=== PATIENT | male | born 1940 | race Caucasian/White ===

== ENCOUNTER → 2018-01-19 13:45 | Outpatient (CLI) | payer MEDICARE, SELFPAY ==
[2018-01-19 16:37] LABS: BUN Creatinine Ratio 21.1 (6-22); Blood Urea Nitrogen 19 mg/dL (9-20); Calcium 9.3 mg/dL (8.4-10.2); Carbon Dioxide 32 mmol/L (22-32); Chloride 96 mmol/L (98-107); Estimated Glomerular Filt Rate > 60.0 mL/min (>60); Glucose 95 mg/dL (80-110); HEMOLYSIS < 15 (0-50); Potassium 3.3 mmol/L (3.4-5.1); Sodium 138 mmol/L (137-145)
[2018-01-19 17:04] LABS: Prostate Specific Antigen Scrn 1.72 ng/mL (0.1-4.0)
== END ==
PROVIDERS: PCP Internal Medicine; Visit Provider Internal Medicine
DX: N18.9 Chronic kidney disease, unspecified (principal); N40.1 Benign prostatic hyperplasia with lower urinary tract symptoms
CPT/HCPCS: 36415; 80048; G0103

== ENCOUNTER → 2018-01-28 08:30 | Outpatient (CLI) | payer MEDICARE, SELFPAY ==
--- NOTE | 2018-01-28 | DI.US.S_ITS ---
PROCEDURE: US RENAL COMPLETE INDICATIONS: CHRONIC KIDNEY DISEASE TECHNIQUE: Real-time scanning was performed of the kidneys and bladder, with image documentation. COMPARISON: None. FINDINGS: Kidneys: Kidneys are normal in size. Right kidney measures 11.7 cm long; left kidney measures 11.7 cm long. Right renal cortical thickness is 1.5 cm; left renal cortical thickness is 1.8 cm. Renal cortical echotexture is normal. No hydronephrosis or nephrolithiasis. No suspicious solid mass lesions. Bladder: Pre-void bladder volume is 498 mL. Post-void residual is seen 387 mL. Pre-void images demonstrate no intraluminal masses or stones. On pre-void images, both ureteral jets are noted with color Doppler interrogation. (Of note, ureteral jets may not be detectable in up to 25% of cases due to insufficient differences in specific gravity between ureteral and bladder urine). Miscellaneous: No free pelvic fluid. IMPRESSION: 1. Mild renal cortical thinning, otherwise normal ultrasound appearance of kidneys. No hydronephrosis. 2. 387 mL post void residual in the urinary bladder. Dictated by: Ivone George M.D. on 01/28/2018 at 16:43 Approved by: Ivone George M.D. on 01/28/2018 at 16:45
[2018-01-28 09:14] LABS: BUN Creatinine Ratio 14.3 (6-22); Blood Urea Nitrogen 20 mg/dL (9-20); Calcium 9.1 mg/dL (8.4-10.2); Carbon Dioxide 25 mmol/L (22-32); Chloride 101 mmol/L (98-107); Estimated Glomerular Filt Rate 49.4 mL/min (>60); Glucose 107 mg/dL (80-110); HEMOLYSIS < 15 (0-50); Potassium 4.5 mmol/L (3.4-5.1); Sodium 138 mmol/L (137-145)
== END ==
PROVIDERS: PCP Internal Medicine; Visit Provider Internal Medicine
DX: N18.9 Chronic kidney disease, unspecified (principal); I48.91 Unspecified atrial fibrillation
CPT/HCPCS: 36415; 76770; 80048

== ENCOUNTER → 2018-03-24 09:33 | Outpatient (CLI) | payer MEDICARE, SELFPAY ==
--- NOTE | 2018-03-24 | DI.US.S_ITS ---
PROCEDURE: US ABD AORTA ANEURYSM SCREEN INDICATIONS: SCREENING TECHNIQUE: Real time scanning was performed of the aorta and iliac arteries, with image documentation. COMPARISON: None. FINDINGS: Aorta: Proximal aortic diameter measures 2.0 cm. Mid-aorta measures 1.6 cm. Distal aortic diameter is 1.4 cm. Iliac arteries: Right common iliac artery measures 1.1 cm. Left common iliac artery measures 1.0 cm. IMPRESSION: No evidence of abdominal aortic aneurysm. Dictated by: Uri Matute M.D. on 03/24/2018 at 10:00 Approved by: Uri Matute M.D. on 03/24/2018 at 10:02
== END ==
PROVIDERS: PCP Internal Medicine; Visit Provider Internal Medicine
DX: Z13.6 Encounter for screening for cardiovascular disorders (principal)
CPT/HCPCS: 76706

== ENCOUNTER → 2018-10-07 09:02 | Outpatient (CLI) | payer MEDICARE, SELFPAY ==
[2018-10-07 09:35] LABS: Add Manual Diff / Slide Review NO; Basophils Absolute Auto 100 /uL (0-100); Basophils Percent Auto 0.8 % (0-2); Eosinophils Absolute Auto 100 /uL (0-450); Eosinophils Percent Auto 1.7 % (2-4); Hematocrit 45.8 % (41-53); Hemoglobin 15.6 g/dL (13.5-17.5); Lymphocytes Absolute Auto 2300 /uL (1100-4500); Lymphocytes Percent Auto 30.4 % (25-40); Mean Corpuscular HGB Conc 34.1 % (30-36); Mean Corpuscular Hemoglobin 31.8 PG (26-34); Mean Corpuscular Volume 93.4 fL (80-100); Monocytes Absolute Auto 700 /uL (0-900); Monocytes Percent Auto 9.3 % (3-14); Neutrophils Absolute Auto 4400 /uL (1500-7000); Neutrophils Percent Auto 57.8 % (50-75); Platelet Count 227 X10^3/uL (150-400); Red Blood Cell Count 4.91 X10^6/uL (4.5-5.9); Red Cell Distribution Width 15.2 % (11.6-14.8); White Blood Cell Count 7.5 X10^3/uL (4.5-11.0)
[2018-10-07 09:45] LABS: Alanine Aminotransferase 52 IU/L (21-72); Albumin 4.5 g/dL (3.5-5.0); Albumin Globulin Ratio 1.3 (1.0-2.8); Alkaline Phosphatase 103 U/L (38-126); Aspartate Aminotransferase 58 IU/L (17-59); Bilirubin Total 0.9 mg/dL (0.2-1.3); Blood Urea Nitrogen 18 mg/dL (9-20); Calcium 9.4 mg/dL (8.4-10.2); Carbon Dioxide 29 mmol/L (22-32); Chloride 92 mmol/L (98-107); Cholesterol 161 mg/dL (140-199); Estimated Glomerular Filt Rate > 60.0 mL/min (>60); Globulin 3.5 g/dL (1.7-4.1); Glucose 148 mg/dL (80-110); HDL Cholesterol 62 mg/dL (40-60); HEMOLYSIS < 15 (0-50); LDL Cholesterol Calculated 64 mg/dL (<100); Potassium 3.6 mmol/L (3.4-5.1); Sodium 135 mmol/L (137-145); Triglycerides 174 mg/dL (35-150)
== END ==
PROVIDERS: PCP Internal Medicine; Visit Provider Internal Medicine
DX: G47.33 Obstructive sleep apnea (adult) (pediatric) (principal); E66.9 Obesity, unspecified; N18.9 Chronic kidney disease, unspecified; E78.00 Pure hypercholesterolemia, unspecified
CPT/HCPCS: 36415; 80053; 80061; 85025

== ENCOUNTER 2019-07-20 08:01 | Day surgery (SDC) | payer MEDICARE, SELFPAY ==
--- NOTE | 2019-07-19 08:26 | PM.PREOP ---
Pre-operative Note Interval Note History & Physical reviewed/Exam performed by Physician: Yes Changes to H&P: No
--- NOTE | 2019-07-20 07:21 | PM.PREOP ---
Pre-operative Note Interval Note History & Physical reviewed/Exam performed by Physician: Yes Changes to H&P: No H&P completed within 30 days and has changed as indicated here:: Patient on tamsulosin, held this morning only. Will prepare for floppy iris syndrome.
--- NOTE | 2019-07-20 07:22 | P.OP_ITS ---
Operative Date/Time/Diagnoses Date of procedure: 07/20/19 Time of procedure: 09:45 Procedure & Clinicians Procedure: Preoperative diagnoses: 1. 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 3. Status post radial keratotomy LASIK an astigmatic refractive surgery all increasing surgical risk. 4. Morbid obesity. 5. Hypertension. Postoperative diagnoses: 1. Complex cataract removed by phacoemulsification with placement of posterior chamber intraocular lens. 2. Use of Malyugin ring and capsular dye due to advanced cataract. Procedure: Phacoemulsification with posterior chamber intraocular lens implant and use of Malyguin ring. Surgeon: Bharti Ivy MD Complications: None Specimen: None Implant: [id number]+17.5 Blood loss: None Anesthesia: Retrobulbar with monitored standby Description of procedure: Patient presents with a complaint of decreased vision due to cataract which is affecting activities of daily living. He is higher risk due to the previous refractive surgeries of radial keratotomy LASIK and possible astigmatic keratotomy as well as advanced cataract. Also he is is on active tamsulosin which makes it likely for floppy iris The patient wants surgery to improve vision. The iris is floppy due to use of prostate like medication or unknown reason. To improve surgical safety a Malyugin ring iris pupillary device is needed. The patient was taken to the operating room and given IV sedation. A retrobulbar block insert consisting of 6 cc of 2% xylocaine without epinephrine mixed half and half with 0.5% Marcaine with 1 cc of hyaluronidase added is placed between the medial and lateral 1/3 of the inferior orbital rim. Lid akinesia is obtain with 1% xylocaine with epinephrine infiltrated along the lid margin. The eye is manually massaged for 30 sec, prepped using Betadine solution, and draped in the usual sterile fashion. Temporal approach was made, a 1 mm side-port incision was made 90? from the proposed clear corneal incision position. Phenylephrine 1.5% mixed with 1% xylocaine 0.2 cc was placed into the anterior chamber. An air bubble was placed and Visudyne dye was placed into the anterior chamber on the anterior capsule. Viscoat followed by Healon was then placed. A 2.6 mm clear incision with a 2.6 mm blade was placed. A 7.0 mm Malyugin ring was inspected, placed into the food service supervisor and opened in the anterior chamber. The iris was sequentially hooked in all 4 quadrants. It was then centered to improve iris size and visibility.] A 360 degree capsulorrhexis style capsulotomy was then performed with a cystitome needle on a Healon aided by the enlarged pupil. Hydrodelineation and hydrodissection were performed. The phacoemulsification unit is introduced, and sculpting used to groove the central lens. It is then removed in chopping mode. Epi nucleus is removed with epinuclear mode and irrigation aspiration was used to remove the peripheral cortex. The posterior capsule is polished. The intraocular lens is selected, inspected, power confirmed, and placed in the posterior chamber. Viscoelastic was placed into the anterior chamber and the Malyugin ring disinserted from each quadrant of the iris. It was then placed back into its food service supervisor and removed in total from the eye. The wound was stromally hydrated and tested for leaks, there was none and it was left sutureless. The cornea in all its previous incisions was also tested for leak and none were present. It was left sutureless as well. Moxifloxacin 0.1 cc was placed into the anterior chamber. Kenalog 0.2 cc was placed in the superior subconjunctival space. A drop of antibiotic and was placed and the eye was patched and shielded. The patient was stable and returned to the recovery room in excellent condition. Dictated by: hBarti Ivy MD Copy to: [facility] Same procedure as scheduled: Yes
[2019-07-20] MEDS: PROPARACAINE 0.5% OPHTH SOL 2 DROPS EYE-OP (08:53)
[2019-07-20] MEDS: CATARACT EYE COMPOUND (10 DROPS/SYRINGE) 3 DROPS EYE-OP (08:53)
[2019-07-20 08:59] VITALS: BP 152/61; PULSE 46; RESP 15; TEMP 36.8; O2SAT 96; BMI 39.6
[2019-07-20] MEDS: TRIAMCINOLONE 50 MG/5 ML VIAL INJ (10:23)
[2019-07-20] MEDS: MOXIFLOXACIN INJ 5 MG/ML VIAL EYE-OP (10:24)
[2019-07-20] MEDS: PHENYLEPHRINE/LIDOCAINE VIAL (OR) 0.2 ML EYE-OP (10:25)
[2019-07-20] MEDS: LIDOCAINE 2% 4 ML, BUPIVACAINE 0.5% (PF) 4 ML, HYALURONIDASE 150 UNIT INJ (10:26)
[2019-07-20] MEDS: TRYPAN BLUE 0.5 ML SYRINGE INJ (10:26)
[2019-07-20] MEDS: BALANCED SALT IRRIG SOLN NO.2 500 ML, EPINEPHrine 1 MG IRR (10:27)
[2019-07-20] MEDS: HYALURONATE SODIUM 10 MG/ML SYRINGE INJ (10:27)
[2019-07-20] MEDS: ERYTHROMYCIN OPHTH 1 GM OINT 1 APPLIC EYE-RIGHT (10:28)
[2019-07-20] MEDS: CHONDROIDTIN/SOD HYALURONATE 1.05 ML SYRINGE INTRAOCULA (10:28)
[2019-07-20 10:48] VITALS: BP 170/82; PULSE 45; RESP 16; TEMP 36.2; O2SAT 97
== END 2019-07-20 11:04 | disposition home or self-care (01) ==
LOC: OR 08:03
PROVIDERS: PCP Internal Medicine; Referring Provider Ophthalmology; Visit Provider Ophthalmology
PROC: (CPT 66982; principal; 2019-07-20 09:45)
DX: H25.811 Combined forms of age-related cataract, right eye (principal); H21.81 Floppy iris syndrome
CPT/HCPCS: 66982; J0171; J2704; J3301; J3470

== ENCOUNTER → 2020-04-09 08:48 | Outpatient (CLI) | payer MEDICARE, SELFPAY ==
[2020-04-09 09:50] LABS: Add Manual Diff / Slide Review NO; Basophils Absolute Auto 0 /uL (0-100); Basophils Percent Auto 0.7 % (0-2); Eosinophils Absolute Auto 200 /uL (0-450); Eosinophils Percent Auto 3.4 % (2-4); Hematocrit 43.5 % (41-53); Hemoglobin 14.8 g/dL (13.5-17.5); Lymphocytes Absolute Auto 1800 /uL (1100-4500); Lymphocytes Percent Auto 26.6 % (25-40); Mean Corpuscular Hemoglobin 31.7 PG (26-34); Mean Corpuscular Volume 93.4 fL (80-100); Monocytes Absolute Auto 600 /uL (0-900); Monocytes Percent Auto 8.6 % (3-14); Neutrophils Absolute Auto 4100 /uL (1500-7000); Neutrophils Percent Auto 60.7 % (50-75); Platelet Count 137 X10^3/uL (150-400); Red Blood Cell Count 4.66 X10^6/uL (4.5-5.9); Red Cell Distribution Width 13.9 % (11.6-14.8); White Blood Cell Count 6.8 X10^3/uL (4.5-11.0)
[2020-04-09 10:31] LABS: Alanine Aminotransferase 39 IU/L (<50); Albumin 3.8 g/dL (3.5-5.0); Albumin Globulin Ratio 1.5 (1.0-2.8); Alkaline Phosphatase 93 U/L (38-126); Aspartate Aminotransferase 39 IU/L (17-59); BUN Creatinine Ratio 20.2 (6-22); Bilirubin Total 0.8 mg/dL (0.2-1.3); Blood Urea Nitrogen 21 mg/dL (9-20); Calcium 8.9 mg/dL (8.4-10.2); Carbon Dioxide 32 mmol/L (22-32); Chloride 102 mmol/L (98-107); Cholesterol 168 mg/dL (140-199); Estimated Glomerular Filt Rate > 60.0 mL/min (>60); Globulin 2.6 g/dL (1.7-4.1); Glucose 117 mg/dL (80-110); HDL Cholesterol 63 mg/dL (40-60); HEMOLYSIS < 15 (0-50); LDL Cholesterol Calculated 68 mg/dL (<100); Potassium 4.2 mmol/L (3.4-5.1); Sodium 137 mmol/L (137-145); Total Protein 6.4 g/dL (6.3-8.2); Triglycerides 185 mg/dL (35-150); Uric Acid 8.6 mg/dL (3.5-8.5)
== END ==
PROVIDERS: PCP Internal Medicine; Referring Provider Internal Medicine; Visit Provider Internal Medicine
DX: I10 Essential (primary) hypertension (principal); E66.9 Obesity, unspecified; M10.00 Idiopathic gout, unspecified site; E78.00 Pure hypercholesterolemia, unspecified
CPT/HCPCS: 36415; 80053; 80061; 84550; 85025

== ENCOUNTER → 2020-08-15 15:42 | Outpatient (CLI) | payer MEDICARE, SELFPAY ==
[2020-08-15] MEDS: COVID-19 VACC, Ad26(JANSSEN)/PF 0.5 ML IM (15:50)
== END ==
PROVIDERS: PCP Internal Medicine; Visit Provider Internal Medicine
DX: Z23 Encounter for immunization (principal)
CPT/HCPCS: 0031A; 91303

== ENCOUNTER → 2020-09-04 11:21 | Outpatient (CLI) | payer MEDICARE, SELFPAY ==
[2020-09-04 12:40] LABS: Add Manual Diff / Slide Review NO; Basophils Absolute Auto 0 /uL (0-100); Basophils Percent Auto 0.5 % (0-2); Eosinophils Absolute Auto 100 /uL (0-450); Eosinophils Percent Auto 1.9 % (2-4); Hematocrit 43.9 % (41-53); Hemoglobin 14.5 g/dL (13.5-17.5); Lymphocytes Absolute Auto 2100 /uL (1100-4500); Lymphocytes Percent Auto 27.7 % (25-40); Mean Corpuscular HGB Conc 33.1 % (30-36); Mean Corpuscular Hemoglobin 30.4 PG (26-34); Mean Corpuscular Volume 91.9 fL (80-100); Monocytes Absolute Auto 700 /uL (0-900); Monocytes Percent Auto 9.1 % (3-14); Neutrophils Absolute Auto 4600 /uL (1500-7000); Neutrophils Percent Auto 60.8 % (50-75); Platelet Count 155 X10^3/uL (150-400); Red Blood Cell Count 4.78 X10^6/uL (4.5-5.9); Red Cell Distribution Width 14.1 % (11.6-14.8); White Blood Cell Count 7.6 X10^3/uL (4.5-11.0)
[2020-09-04 13:03] LABS: BUN Creatinine Ratio 19.8 (6-22); Blood Urea Nitrogen 20 mg/dL (9-20); Calcium 9.5 mg/dL (8.4-10.2); Carbon Dioxide 26 mmol/L (22-32); Chloride 105 mmol/L (98-107); Estimated Glomerular Filt Rate > 60.0 mL/min (>60); Glucose 96 mg/dL (80-110); HEMOLYSIS < 15 (0-50); Potassium 4.5 mmol/L (3.4-5.1); Sodium 138 mmol/L (137-145)
== END ==
PROVIDERS: PCP Internal Medicine; Referring Provider Internal Medicine; Visit Provider Internal Medicine
DX: I10 Essential (primary) hypertension (principal); G47.33 Obstructive sleep apnea (adult) (pediatric); N18.9 Chronic kidney disease, unspecified; M10.00 Idiopathic gout, unspecified site
CPT/HCPCS: 36415; 80048; 84550; 85025

== ENCOUNTER → 2020-10-09 10:19 | Outpatient (CLI) | payer MEDICARE, SELFPAY ==
[2020-10-09 11:24] LABS: Hemoglobin A1C% w Est Avg Glu 5.6 % (4.0-6.0)
[2020-10-09 12:50] LABS: Folate > 20.0 ng/mL (2.76-20.0); Vitamin B12 Reflex MMA if <400 926 pg/mL (239-931)
== END ==
PROVIDERS: PCP Internal Medicine; Referring Provider Internal Medicine; Visit Provider Internal Medicine
DX: I10 Essential (primary) hypertension (principal); G62.9 Polyneuropathy, unspecified; R73.01 Impaired fasting glucose
CPT/HCPCS: 36415; 82607; 82746; 83036

== ENCOUNTER → 2021-05-09 15:01 | Outpatient (CLI) | payer MEDICARE, SELFPAY ==
--- NOTE | 2021-05-24 08:46 | PM.CARDMON.1 ---
[facility] Report Referral & Results Date Patient Seen: 05/09/21 Requesting provider: Conrado Leal Indication: Palpitations Duration of monitoring (days): 6 Diary information: There were no patient events to review Data: Minimum heart rate identified was 37 beats per minute at 06:12 on 05/11/2021 Maximum sinus heart rate was 99 beats per minute at 09:51 on 05/15/2021 Maximum overall heart rate was 144 beats per minute at 11:36 on 05/09/2021 during a 4 beat run of SVT Approximately 1.1% of identified beats were supraventricular ectopic in origin which would classify them as occasional Approximately 6.4% of identified beats were ventricular ectopic in origin which would classify them as frequent. This included 3 minute 2nd run of ventricular trigeminy There were 18 runs of SVT the fastest being the 4 beat run noted above and the longest lasting 14 beats at a rate of 120 beats per minute which would suggest possible atrial tachycardia rather than true SVT Impression: 6 day secured entrance monitor demonstrating frequent PVCs and occasional PACs as a possible source of sense of palpitations Very rare very brief runs of SVT also identified Patient also somewhat bradycardic overall with maximum sinus heart rate being only 99 beats per minute and minimum heart rate being 37 as above Clinical correlation suggested
== END ==
PROVIDERS: PCP Internal Medicine; Referring Provider Internal Medicine; Visit Provider Internal Medicine
DX: R00.2 Palpitations (principal)
CPT/HCPCS: 93242; 93244

== ENCOUNTER 2021-09-27 18:07 | Emergency (ER) | payer MEDICARE, SELFPAY ==
[2021-09-27] VITALS (20 sets, daily range): BP systolic 155–220; BP diastolic 74–91; PULSE 56–70; RESP 10–28; TEMP 36.7; O2SAT 91–98; BMI 44.6
--- NOTE | 2021-09-27 18:56 | DI.RAD.S_ITS ---
PROCEDURE: XR CHEST 2V INDICATIONS: abdominal/ chest pain TECHNIQUE: 2 views of the chest were acquired. COMPARISON: [facility], , CHEST 2 VIEW, 01/16/2017, 9:47. FINDINGS: Surgical changes and devices: None. Lungs and pleura: Lungs are clear. No pleural effusions or pneumothorax. Mediastinum: Mediastinal contours are normal. Heart size is normal. Bones and chest wall: No suspicious bony abnormalities. Soft tissues appear unremarkable. IMPRESSION: No acute cardiopulmonary abnormality. Dictated by: Deny Adams M.D. on 09/27/2021 at 20:17 Approved by: Deny Adams M.D. on 09/27/2021 at 20:17
--- NOTE | 2021-09-27 19:05 | DI.CT.S_ITS ---
PROCEDURE: CT ANGIO CHEST ABDOMEN PELVIS INDICATIONS: upper ab pain, no bm/no flatus, no vomiting, [place] TECHNIQUE: Precontrast 5 mm thick sections acquired from the lung apices to the iliac crests. After the administration of intravenous contrast, 2.5 mm thick sections again acquired from the lung apices to the iliac crests. Maximum intensity projection (MIP) oblique sagittal and coronal reformats were then acquired. For radiation dose reduction, the following was used: automated exposure control. COMPARISON: None. FINDINGS: Image quality: Excellent. AORTA: The thoracic and abdominal aorta have a normal caliber with no dissection or aneurysm. There are diffuse atherosclerotic calcifications. CHEST: Lungs and pleura: No acute air space opacities. No pleural effusions or pneumothorax. Central and peripheral airways are patent and normal in caliber. Nodules in the right upper lobe measuring 3-5 mm series 6, image 67, 81, and 86 are seen. No other pulmonary nodules or masses. Mediastinum: Heart size is normal. No pericardial effusion. The coronary arteries have atherosclerotic calcifications. No mediastinal adenopathy by size criteria. The aorta has atherosclerosis with no aneurysmal dilatation. Esophagus is normal in caliber. No hiatal hernia. Chest wall: No axillary or supraclavicular adenopathy by size criteria. Thyroid gland is normal . ABDOMEN: Solid organs: Liver: The liver has no mass or intrahepatic biliary ductal dilatation. Biliary: The gallbladder has no gallstones, pericholecystic fluid, gallbladder wall thickening, or surrounding inflammatory change. Pancreas: The pancreas has no mass or ductal dilatation. There is no surrounding inflammation. Spleen: Normal size. There are no masses. Adrenals: No hypertrophy or nodules. Kidneys: No obstructive calculus or hydronephrosis. No solid mass. No cystic mass. Bowel: The distal esophagus and stomach are normal. The small bowel has a normal caliber and appearance. The terminal ileum is normal. The large bowel has a normal caliber and appearance. The appendix is not definitively visualized and therefore acute appendicitis cannot be excluded; however there are no secondary findings to suggest acute appendicitis. No free fluid or air. Nodes and vessels: No retroperitoneal or mesenteric adenopathy by size criteria. Aorta and inferior vena cava are normal in size. Abdominal wall: No abdominal wall mass or hernia. PELVIS: Genitourinary: The bladder has no wall thickening or mass. No bladder calcifications. Abdominal wall: No inguinal hernias or adenopathy. BONES: No suspicious bony lesions. Degenerative changes with no focal abnormality. IMPRESSION: 1. No acute abnormality of the chest, abdomen, or pelvis. 2. No dissection or aneurysm of the thoracic or abdominal aorta. 3. Coronary artery disease. Dictated by: Deny Adams M.D. on 09/27/2021 at 20:54 Approved by: Deny Adams M.D. on 09/27/2021 at 21:02
[2021-09-27 19:11] LABS: COVID19 -Nasal RAPID Negative (Negative)
--- NOTE | 2021-09-27 19:26 | DI.CT.S_ITS ---
PROCEDURE: CT HEAD/BRAIN WO CON INDICATIONS: HTN and headache TECHNIQUE: Noncontrast 4.5 mm thick angled axial sections acquired from the foramen magnum to the vertex, with coronal and sagittal reformats. For radiation dose reduction, the following was used: automated exposure control, adjustment of mA and/or kV according to patient size. COMPARISON: None. FINDINGS: Image quality: Excellent. CSF spaces: Basal cisterns are patent. No extra-axial fluid collections. Ventricles are normal in size and shape. Brain: No midline shift. No intracranial masses or hemorrhage. [place]-white matter interface is normal. Subcortical and periventricular white matter hypodensities are consistent with microvascular ischemic disease. Intracranial vasculature has atherosclerotic calcifications. Skull and face: Calvarium and visualized facial bones are intact, without suspicious lesions. Sinuses: Visualized sinuses and mastoids are clear. IMPRESSION: 1. No acute intracranial abnormality. 2. Cerebral volume loss and small vessel ischemic changes. Dictated by: Deny Adams M.D. on 09/27/2021 at 20:50 Approved by: Deny Adams M.D. on 09/27/2021 at 20:54
[2021-09-27 19:45] LABS: Add Manual Diff / Slide Review NO; Basophils Absolute Auto 0 /uL (0-100); Basophils Percent Auto 0.3 % (0-2); Eosinophils Absolute Auto 0 /uL (0-450); Eosinophils Percent Auto 0.2 % (2-4); Hematocrit 44.9 % (41-53); Hemoglobin 15.3 g/dL (13.5-17.5); Lymphocytes Absolute Auto 1100 /uL (1100-4500); Mean Corpuscular Hemoglobin 30.8 PG (26-34); Mean Corpuscular Volume 90.7 fL (80-100); Monocytes Absolute Auto 800 /uL (0-900); Neutrophils Absolute Auto 11700 /uL (1500-7000); Neutrophils Percent Auto 85.5 % (50-75); Platelet Count 156 X10^3/uL (150-400); Red Blood Cell Count 4.95 X10^6/uL (4.5-5.9); Red Cell Distribution Width 13.5 % (11.6-14.8); White Blood Cell Count 13.7 X10^3/uL (4.5-11.0)
[2021-09-27 20:14] LABS: Lactate (Lactic Acid) 1.7 mmol/L (0.7-2.1)
[2021-09-27 20:15] LABS: Alanine Aminotransferase 38 IU/L (<50); Albumin 4.2 g/dL (3.5-5.0); Albumin Globulin Ratio 1.4 (1.0-2.8); Alkaline Phosphatase 86 U/L (38-126); Aspartate Aminotransferase 43 IU/L (17-59); BUN Creatinine Ratio 15.6 (6-22); Bilirubin Total 0.9 mg/dL (0.2-1.3); Blood Urea Nitrogen 15 mg/dL (9-20); Calcium 8.9 mg/dL (8.4-10.2); Carbon Dioxide 32 mmol/L (22-32); Chloride 98 mmol/L (98-107); Estimated Glomerular Filt Rate > 60 mL/min (>60); Globulin 3.1 g/dL (1.7-4.1); Glucose 132 mg/dL (80-110); HEMOLYSIS < 15 (0-50); Lipase 308 U/L (23-300); Potassium 3.9 mmol/L (3.4-5.1); Sodium 136 mmol/L (137-145); Total Protein 7.3 g/dL (6.3-8.2)
[2021-09-27 20:27] LABS: NT-proBNP (BNP-Adult 18+) 649 pg/mL (<450); Troponin I 0.028 ng/mL (0.01-0.034)
--- NOTE | 2021-09-27 21:21 | ED_ITS ---
HPI - General Adult General Chief complaint: Abdominal Pain Stated complaint: Feels Like , Abd Pain,High BP,Rt Eye Pain Time Seen by Provider: 09/27/21 18:54 Source: patient and family Mode of arrival: Ambulatory History of Present Illness HPI narrative: Patient is a 81-year-old male. History of high blood pressure. Is on medicatio ns for his blood pressure. States he is taking them as directed. Is here for evaluation of chest pain, abdominal pain, no bowel movement in a couple days, headache specifically pain behind his right eye and high blood pressure. He denies chest pain. No shortness of breath. He does state that his abdomen pain is in his upper abdomen. Somewhat worse with palpation. No vomiting. No urinary symptoms. Skin rash. No lower extremity swelling. No vision changes but he is having some discomfort behind his right eye. He does not take his blood pressure on a regular basis but when he was feeling poorly earlier today his to his blood pressure and the systolic was above 200. Related Data Home Medications Medication Instructions Recorded Confirmed RespirCasks Dreamstation CPAP #1 ea 11/04/18 11/04/18 allopurinol 300 mg tablet 300 mg PO DAILY 11/05/18 07/20/19 doxycycline hyclate 20 mg tablet 20 mg PO DAILY tab 11/05/18 07/20/19 fexofenadine 180 mg tablet 180 mg PO PRN PRN 11/05/18 07/20/19 (Maegan Allergy) hydrochlorothiazide 25 mg tablet 25 mg PO DAILY 11/05/18 07/20/19 lovastatin 20 mg tablet 20 mg PO DAILY 11/05/18 07/20/19 metoprolol succinate 50 mg 50 mg PO DAILY 11/05/18 07/20/19 tablet,extended release 24 hr tamsulosin 0.4 mg capsule 0.4 mg PO DAILY 11/05/18 07/20/19 Allergies Allergy/AdvReac Type Severity Reaction Status Date / Time No Known Drug Allergies Allergy Verified 07/20/19 08:57 Review of Systems Review of Systems ROS Unobtainable: All systems reviewed & are unremarkable except as noted in HPI and below Patient History Medical History Depression with anxiety Hyperlipidemia Hypertension Morbid obesity with BMI of 45.0-49.9, adult Obesity (BMI 30-39.9) Obstructive sleep apnea of adult Primary insomnia Social History marital status: details: in an RN household members: spouse lives independently: Yes caregiver/support person: No occupational status: previously employed Smoking Status: Former smoker alcohol intake: current substance use type: does not use Smoking Status: Former smoker alcohol intake frequency: 0-2 drinks per day Alcohol type: beer, wine and hard liquor Substance Use Type: does not use Exam Initial Vital Signs Initial Vital Signs: Vital Signs Temperature 98.0 F 09/27/21 18:34 Pulse Rate 67 09/27/21 18:34 Respiratory Rate 18 09/27/21 18:34 Blood Pressure 220/83 H 09/27/21 18:34 Pulse Oximetry 96 09/27/21 18:34 Const General: cooperative, comfortable and well developed HENMS Head: normal to inspection and normocephalic Face and sinus: normal facial exam Eyes General: appearance normal, both eyes and all related structures Resp Effort & Inspection: normal respiratory effort Auscultation: clear to auscultation bilaterally Cardio Rate: regular rate Rhythm: regular rhythm GI Inspection: normal to inspection Palpation: soft Skin General: no rashes or lesions noted Neuro General: patient alert, patient awake, patient oriented x3 and moves all e xtremities Extrem General: normal to inspection and capillary refill normal Psych Appearance: grossly normal and well kempt Mental Status: mental status grossly normal Course Orders Ordered: Discontinued Medications Hydralazine HCl (Hydralazine 20 Mg/Ml Vial) 10 mg IV NOW ONE Stop: 09/27/21 21:22 Last Admin: 09/27/21 21:40 Dose: 10 mg Documented by: JO ANN Hydromorphone HCl (Hydromorphone 1 Mg Inj) 1 mg IV NOW ONE Stop: 09/27/21 21:22 Last Admin: 09/27/21 21:36 Dose: 1 mg Documented by: JO ANN Vital Signs Vital signs: Vital Signs - 8 hr 09/27/21 22:30 09/27/21 22:31 09/27/21 22:41 Pulse Rate 58 L 58 L 58 L Respiratory Rate 20 16 17 Blood Pressure 183/77 H 174/77 H Pulse Oximetry 91 93 93 09/27/21 22:51 09/27/21 23:00 09/27/21 23:01 Pulse Rate 60 56 L 59 L Respiratory Rate 24 12 15 Blood Pressure 180/79 H 172/79 H Pulse Oximetry 95 95 93 Medical Decision Making Lab Data Lab results reviewed: Yes I reviewed the patient's lab results. Result diagrams: 09/27/21 19:30 09/27/21 19:30 Labs: Lab Results 09/27/21 09/27/21 09/27/21 Range/Units 18:45 19:30 19:30 WBC 13.7 H (4.5-11.0) X10^3/uL RBC 4.95 (4.5-5.9) X10^6/uL Hgb 15.3 (13.5-17.5) g/dL Hct 44.9 (41-53) % MCV 90.7 (80-100) fL MCH 30.8 (26-34) PG MCHC 34.0 (30-36) % RDW 13.5 (11.6-14.8) % Plt Count 156 (150-400) X10^3/uL Neut % (Auto) 85.5 H (50-75) % Lymph % (Auto) 8.0 L (25-40) % Atkinson % (Auto) 6.0 (3-14) % Eos % (Auto) 0.2 L (2-4) % Baso % (Auto) 0.3 (0-2) % Neut # (Auto) 91117 H (0218-0161) /uL Lymph # (Auto) 1100 (3144-1375) /uL Atkinson # (Auto) 800 (0-900) /uL Eos # (Auto) 0 (0-450) /uL Baso # (Auto) 0 (0-100) /uL Sodium 136 L (137-145) mmol/L Potassium 3.9 (3.4-5.1) mmol/L Chloride 98 (98-107) mmol/L Carbon Dioxide 32 (22-32) mmol/L BUN 15 (9-20) mg/dL Creatinine 0.96 (0.66-1.25) mg/dL Estimated GFR > 60 (>60) mL/min BUN/Creatinine Ratio 15.6 (6-22) Glucose 132 H (80-110) mg/dL Lactate (0.7-2.1) mmol/L Calcium 8.9 (8.4-10.2) mg/dL Total Bilirubin 0.9 (0.2-1.3) mg/dL AST 43 (17-59) IU/L ALT 38 (<50) IU/L Alkaline Phosphatase 86 (38-126) U/L Troponin I (0.01-0.034) ng/mL NT-Pro-B Natriuret Pep (<450) pg/mL Total Protein 7.3 (6.3-8.2) g/dL Albumin 4.2 (3.5-5.0) g/dL Globulin 3.1 (1.7-4.1) g/dL Albumin/Globulin Ratio 1.4 (1.0-2.8) Lipase 308 H (23-300) U/L SARS-CoV-2 (PCR) Negative (Negative) 09/27/21 09/27/21 Range/Units 19:30 19:30 WBC (4.5-11.0) X10^3/uL RBC (4.5-5.9) X10^6/uL Hgb (13.5-17.5) g/dL Hct (41-53) % MCV (80-100) fL MCH (26-34) PG MCHC (30-36) % RDW (11.6-14.8) % Plt Count (150-400) X10^3/uL Neut % (Auto) (50-75) % Lymph % (Auto) (25-40) % Atkinson % (Auto) (3-14) % Eos % (Auto) (2-4) % Baso % (Auto) (0-2) % Neut # (Auto) (1995-9434) /uL Lymph # (Auto) (7028-2628) /uL Atkinson # (Auto) (0-900) /uL Eos # (Auto) (0-450) /uL Baso # (Auto) (0-100) /uL Sodium (137-145) mmol/L Potassium (3.4-5.1) mmol/L Chloride (98-107) mmol/L Carbon Dioxide (22-32) mmol/L BUN (9-20) mg/dL Creatinine (0.66-1.25) mg/dL Estimated GFR (>60) mL/min BUN/Creatinine Ratio (6-22) Glucose (80-110) mg/dL Lactate 1.7 (0.7-2.1) mmol/L Calcium (8.4-10.2) mg/dL Total Bilirubin (0.2-1.3) mg/dL AST (17-59) IU/L ALT (<50) IU/L Alkaline Phosphatase (38-126) U/L Troponin I 0.028 (0.01-0.034) ng/mL NT-Pro-B Natriuret Pep 649 H (<450) pg/mL Total Protein (6.3-8.2) g/dL Albumin (3.5-5.0) g/dL Globulin (1.7-4.1) g/dL Albumin/Globulin Ratio (1.0-2.8) Lipase (23-300) U/L SARS-CoV-2 (PCR) (Negative) Urine Dip Bedside Urine Glucose Negative Bedside Urine Bilirubin - Negative Bedside Urine Ketone - Negative Urine Specific [place] 1.010 Bedside Urine Occult Blood - Negative Bedside Urine pH 6.0 Bedside Urine Protein - Negative Bedside Urine Urobilinogen - Negative Bedside Urine Nitrite - Negative Bedside Urine Leukocytes - Negative Esterase Point of care testing: Urine Dip Bedside Urine Glucose Negative Bedside Urine Bilirubin - Negative Bedside Urine Ketone - Negative Urine Specific [place] 1.010 Bedside Urine Occult Blood - Negative Bedside Urine pH 6.0 Bedside Urine Protein - Negative Bedside Urine Urobilinogen - Negative Bedside Urine Nitrite - Negative Bedside Urine Leukocytes - Negative Esterase Imaging Data Chest x-ray: Radiologist's Impression: [address] [address] XRay Report Signed Patient: Amor Hammer MR#: [id number] : 1940 Acct:[id number] Age/Sex: 81 / M Date of Service: 09/27/21 Loc: ED Accession Number: [id number] ?? Procedure: XR chest 2V Ordering Provider: Barbra Montesinos D.O. PROCEDURE:? XR CHEST 2V ? INDICATIONS:? abdominal/ chest pain ? TECHNIQUE:? 2 views of the chest were acquired.? ? COMPARISON:? [facility], , CHEST 2 VIEW, 01/16/2017, 9:47. ? FINDINGS:? ? Surgical changes and devices:? None.? ? Lungs and pleura:? Lungs are clear.? No pleural effusions or pneumothorax.? ? Mediastinum:? Mediastinal contours are normal.? Heart size is normal.? ? Bones and chest wall:? No suspicious bony abnormalities.? Soft tissues appear unremarkable.? ? IMPRESSION:? No acute cardiopulmonary abnormality. ? ? ? Dictated by: Deny Adams M.D. on 09/27/2021 at 20:17 ? ? Approved by: Deny Adams M.D. on 09/27/2021 at 20:17? CT Chest abd pelvis: Radiologist's Impression: [address] [address] [address] Scan Report Signed Patient: Amor Hammer MR#: [id number] : 1940 Acct:[id number] Age/Sex: 81 / M Date of Service: 09/27/21 Loc: ED Accession Number: [id number] ?? Procedure: CT angio chest abdomen pelvis Ordering Provider: Barbra Montesinos D.O. PROCEDURE:? CT ANGIO CHEST ABDOMEN PELVIS ? INDICATIONS:? upper ab pain, no bm/no flatus, no vomiting, [place] ? TECHNIQUE:? Precontrast 5 mm thick sections acquired from the lung apices to the iliac crests.? After the administration of intravenous contrast, 2.5 mm thick sections again acquired from the lung apices to the iliac crests.? Maximum intensity projection (MIP) oblique sagittal and coronal reformats were then acquired.? For radiation dose reduction, the following was used:? automated exposure control.? ? COMPARISON:? None. ? FINDINGS: ? ? Image quality:? Excellent.? ? AORTA:? The thoracic and abdominal aorta have a normal caliber with no dissection or aneurysm.? There are diffuse atherosclerotic calcifications. ? CHEST: Lungs and pleura:? No acute air space opacities.? No pleural effusions or pneumothorax.? Central and peripheral airways are patent and normal in caliber.? Nodules in the right upper lobe measuring 3-5 mm series 6, image 67, 81, and 86 are seen.? No other pulmonary nodules or masses. ? Mediastinum:? Heart size is normal.? No pericardial effusion.? The coronary arteries have atherosclerotic calcifications.? No mediastinal adenopathy by size criteria.? The aorta has atherosclerosis with no aneurysmal dilatation.? Esophagus is normal in caliber.? No hiatal hernia. ? Chest wall:? No axillary or supraclavicular adenopathy by size criteria.? Thyroid gland is normal .? ? ABDOMEN: Solid organs:? Liver: The liver has no mass or intrahepatic biliary ductal dilatation. Biliary: The gallbladder has no gallstones, pericholecystic fluid, gallbladder wall thickening, or surrounding inflammatory change. Pancreas: The pancreas has no mass or ductal dilatation. There is no surrounding inflammation. Spleen: Normal size. There are no masses. Adrenals: No hypertrophy or nodules. Kidneys: No obstructive calculus or hydronephrosis.? No solid mass. No cystic mass. ? Bowel:? The distal esophagus and stomach are normal.? The small bowel has a normal caliber and appearance. The terminal ileum is normal. The large bowel has a normal caliber and appearance.? The appendix is not definitively visualized and therefore acute appendicitis cannot be excluded; however there are no secondary findings to suggest acute appendicitis.? No free fluid or air.? ? Nodes and vessels:? No retroperitoneal or mesenteric adenopathy by size criteria.? Aorta and inferior vena cava are normal in size.? ? Abdominal wall:? No abdominal wall mass or hernia. ? PELVIS:? Genitourinary:? The bladder has no wall thickening or mass. No bladder calcifications. ? Abdominal wall:? No inguinal hernias or adenopathy.? ? BONES:? No suspicious bony lesions.? Degenerative changes with no focal a bnormality. ? IMPRESSION: 1. No acute abnormality of the chest, abdomen, or pelvis. 2. No dissection or aneurysm of the thoracic or abdominal aorta. 3. Coronary artery disease.? ? ? Dictated by: Deny Adams M.D. on 09/27/2021 at 20:54 ? ? Approved by: Deny Adams M.D. on 09/27/2021 at 21:02? CT scan - head: Radiologist's Impression: [address] [address] [address] Scan Report Signed Patient: Amor Hammer MR#: [id number] : 1940 Acct:[id number] Age/Sex: 81 / M Date of Service: 09/27/21 Loc: ED Accession Number: [id number] ?? Procedure: CT head/brain wo con Ordering Provider: Ron Lira D.O. PROCEDURE:? CT HEAD/BRAIN WO CON ? INDICATIONS:? HTN and headache ? TECHNIQUE:? Noncontrast 4.5 mm thick angled axial sections acquired from the foramen magnum to the vertex, with coronal and sagittal reformats.? For radiation dose reduction, the following was used:? automated exposure control, adjustment of mA and/or kV according to patient size.? ? COMPARISON:? None. ? FINDINGS:? Image quality:? Excellent.? ? CSF spaces:? Basal cisterns are patent.? No extra-axial fluid collections.? V entricles are normal in size and shape.? ? Brain:? No midline shift.? No intracranial masses or hemorrhage.? [place]kee[place]-white matter interface is normal. ? Subcortical and periventricular white matter hypod ensities are consistent with microvascular ischemic disease.? Intracranial vasculature has atherosclerotic calcifications. ? Skull and face:? Calvarium and visualized facial bones are intact, without suspicious lesions.? ? Sinuses:? Visualized sinuses and mastoids are clear.? ? IMPRESSION:? 1. No acute intracranial abnormality. 2. Cerebral volume loss and small vessel ischemic changes.? Dictated by: Deny Adams M.D. on 09/27/2021 at 20:50 ? ? Approved by: Deny Adams M.D. on 09/27/2021 at 20:54? ECG Data Attestation: I personally reviewed and interpreted this ECG as follows: Interpretation: Sinus rhythm Frequent PVCs in a trigeminy pattern Trigger rate is 62 Normal axis Normal QRS Normal QTC No ST T wave changes MDM Narrative Medical decision making narrative: Patient is significantly hypertensive with multiple complaints. Head CT he had CT scans the chest abdomen pelvis showed no acute pathology. Patient does have a leukocytosis however there is no definitive source of any infectious etiology. There is no indication for any antibiotics. His blood pressure improved with a dose of hydralazine. He was also given pain medication and the combination of these 2 treatments improved his symptoms and also his blood pressure. Troponin negative. Patient denies chest pain. EKG shows trigeminy but no other ischemic pathology. We did discuss his blood pressure and how he should be taking his blood pressure at home to see whether not his current regiment is appropriately treating this condition. I have low suspicion for intracranial hemorrhage given his workup here in the ER. Will discharge patient home on his current medication regiment however he was given strict return precautions. Discharge Plan Departure Patient Disposition: Home Clinical Impression: Headache, Abdominal pain, Hypertension Instructions: Acute Abdominal Pain, Essential Hypertension, DI for Headache Activity Restrictions/Additional Instructions: I do recommend that you continue to take all of your medications as directed. Contact your primary provider for a follow-up. Be sure to take your blood pr essure at home like we discussed. Also recommend that you try medicine called famotidine/Pepcid. This may help with your abdominal discomfort. Return to the emergency department for any new or worsening symptoms. Prescriptions: No Action (DME) Respironics Dreamstation CPAP Qty: 1 0RF Dose Instruction: As directed Label Comments: Pressure: 12-18 cmH2O DME: [facility] Rx Instructions: As directed metoprolol succinate 50 mg tablet extended release 24 hr 50 mg PO DAILY 0RF tamsulosin 0.4 mg capsule 0.4 mg PO DAILY 0RF allopurinol 300 mg tablet 300 mg PO DAILY 0RF hydrochlorothiazide 25 mg tablet 25 mg PO DAILY 0RF doxycycline hyclate 20 mg tablet 20 mg PO DAILY 0RF lovastatin 20 mg tablet 20 mg PO DAILY 0RF fexofenadine [Maegan Allergy] 180 mg tablet 180 mg PO PRN PRN (Reason: Allergy Symptoms) 0RF Referrals: Jacky Harrington MD [Primary Care Provider] -
[2021-09-27] MEDS: HYDROMORPHONE 1 MG INJ IV (21:36)
[2021-09-27] MEDS: HYDRALAZINE 20 MG/ML VIAL 10 MG IV (21:40)
== END 2021-09-27 23:25 | disposition home or self-care (01) ==
PROVIDERS: Emergency Medicine; Emergency Provider Emergency Medicine; PCP Internal Medicine
DX: R51.9 Headache, unspecified (principal); R10.10 Upper abdominal pain, unspecified; I10 Essential (primary) hypertension; Z87.891 Personal history of nicotine dependence; Z79.899 Other long term (current) drug therapy; Z20.822 Contact with and (suspected) exposure to COVID-19
CPT/HCPCS: 36415; 70450; 71046; 71275; 74174; 80053; 81003; 83605; 83690; 83880; 84484; 85025; 87635; 93005; 96374; 96375; 99284; C9803; J0360; J1170; Q9967

== ENCOUNTER → 2023-07-09 10:55 | Outpatient (CLI) | payer MEDICARE, SELFPAY ==
--- NOTE | 2023-07-09 10:57 | DI.RAD.S_ITS ---
PROCEDURE: XR CHEST 2V INDICATIONS: Cough TECHNIQUE: 2 views of the chest were acquired. COMPARISON: [facility], CR, XR CHEST 2V, 09/27/2021, 19:30. FINDINGS: Surgical changes and devices: None. Lungs and pleura: Lungs are clear. No pleural effusions or pneumothorax. Mediastinum: Mediastinal contours are normal. Heart size is normal. Bones and chest wall: No suspicious bony abnormalities. Soft tissues appear unremarkable. IMPRESSION: No acute cardiopulmonary abnormality is seen. Dictated by: John Castanon M.D. on 07/09/2023 at 11:43 Approved by: John Castanon M.D. on 07/09/2023 at 11:46
== END ==
LOC: RAD 10:56
PROVIDERS: PCP Internal Medicine; Referring Provider Nurse Practitioner Family; Visit Provider Nurse Practitioner Family
DX: R05.9 Cough, unspecified (principal)
CPT/HCPCS: 71046

== ENCOUNTER → 2024-02-04 11:13 | Outpatient (CLI) | payer MEDICARE, SELFPAY ==
[2024-02-04 12:33] LABS: Alanine Aminotransferase 47 IU/L (<50); Aspartate Aminotransferase 56 IU/L (17-59)
== END ==
PROVIDERS: PCP Family Medicine; Referring Provider Podiatrist Foot & Ankle Surgery; Visit Provider Podiatrist Foot & Ankle Surgery
DX: B35.1 Tinea unguium (principal)
CPT/HCPCS: 36415; 84450; 84460

== ENCOUNTER 2024-12-10 08:18 | Inpatient (IN) | payer MEDICARE, SELFPAY ==
[2024-12-10] VITALS (49 sets, daily range): BP systolic 88–166; BP diastolic 53–87; PULSE 82–124; RESP 7–41; TEMP 36.2–36.6; O2SAT 81–97; BMI 43.0; BMI 43.9
--- NOTE | 2024-12-10 08:27 | EKG_ITS ---
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
--- NOTE | 2024-12-10 08:27 | ED.CHESTPAIN ---
HPI - Chest Pain General Chief Complaint: Chest Pain Stated Complaint: Chest discomfort, SOB; can't laydown. Pulse >100 Time Seen by Provider: 12/10/24 08:26 History of Present Illness HPI narrative: 84-year-old gentleman history of high blood pressure, dyslipidemia, gout, arthritis, obstructive sleep apnea, morbid obesity recently diagnosed with atrial fibrillation started on Eliquis 5 mg b.i.d. and diltiazem SR 120 mg presents with right-sided chest pain started last night along with dyspnea on exertion and hurts to take a deep breath. He rates as 10 at this time and did not take anything different other than his regular medicines including levothyroxine allopurinol chlorthalidone lovastatin tamsulosin Eliquis and levothyroxine valsartan and gabapentin. He denies leg pain, leg swelling, long-distance travel, smoking or cancer history or any history of DVT or PE. Other than what is stated 14 point review of system is negative. Related Data Home Medications ?Medication ?Instructions ?Recorded ?Confirmed hydrochlorothiazide 25 mg tablet 25 mg PO DAILY 11/05/18 12/10/24 lovastatin 20 mg tablet 20 mg PO DAILY 11/05/18 12/10/24 metoprolol succinate 50 mg 50 mg PO DAILY 11/05/18 12/10/24 tablet,extended release 24 hr tamsulosin 0.4 mg capsule 0.4 mg PO DAILY 11/05/18 12/10/24 Respironics Dreamstation 2 CPAP #1 ea 11/28/21 12/10/24 allopurinol 300 mg tablet 300 mg PO DAILY 07/09/23 12/10/24 gabapentin 300 mg capsule 400 mg PO DAILY 07/09/23 12/10/24 apixaban 5 mg tablet (Eliquis) 5 mg PO BID 12/10/24 12/10/24 chlorthalidone 25 mg tablet 25 mg PO DAILY 12/10/24 12/10/24 diltiazem HCl 120 mg 120 mg PO DAILY 12/10/24 12/10/24 capsule,extended release 24 hr levothyroxine 75 mcg tablet 75 mcg PO DAILY 12/10/24 12/10/24 valsartan 160 mg tablet 160 mg PO DAILY 12/10/24 12/10/24 Previous Rx's ?Medication ?Instructions ?Recorded albuterol sulfate 90 mcg/actuation 2 puff inhalation Q6H PRN 07/09/23 aerosol inhaler shortness of breath or wheezing #6.7 grams fluticasone propionate 50 1 spray intranasal Q12H #16 grams 07/09/23 mcg/actuation nasal spray,suspension (Flonase Allergy Relief) inhalational spacing device #1 ea 07/09/23 (Aerochamber MV spacer) Allergies Allergy/AdvReac Type Severity Reaction Status Date / Time No Known Drug Allergies Allergy Verified 07/09/23 10:41 Review of Systems Review of Systems ROS Unobtainable: All systems reviewed & are unremarkable except as noted in HPI and below Patient History Medical History (Updated 12/10/24 @ 15:24 by Amor Rahman DO) Obesity (BMI 30-39.9) Hypertension Hyperlipidemia Primary insomnia Obstructive sleep apnea of adult Morbid obesity with BMI of 45.0-49.9, adult Depression with anxiety Social History marital status: details: in an RN household members: spouse lives independently: Yes caregiver/support person: No occupational status: previously employed alcohol intake: current substance use type: does not use alcohol intake frequency: 0-2 drinks per day Alcohol type: beer, wine and hard liquor Exam Narrative Exam Narrative: GENERAL: [84] year old patient appears stated age. Well-developed patient, in mild distress. HEAD: Atraumatic. Normocephalic. EYES: Pupils equal round and reactive. Extraocular motions intact. No scleral icterus. No injection or drainage. ENT: Nose without bleeding, purulent drainage. Throat without erythema, tonsillar hypertrophy or exudate. Airway patent. NECK: Trachea midline. Non tender CARDIOVASCULAR: Tachycardic irregularly irregular without murmurs, gallops, or rubs. RESPIRATORY: Clear to auscultation. Breath sounds equal bilaterally. No wheezes, rales, or rhonchi. GASTROINTESTINAL: Abdomen soft, non-tender, nondistended. EXTREMITIES: No edema or joint tenderness. BACK: Nontender without deformity or crepitance. No flank tenderness. NEURO: AOx3. SKIN: No rash or erythema of visible areas Initial Vital Signs Initial Vital Signs: Vital Signs Pulse Oximetry 81 L 12/10/24 08:23 Scores HEART Score Heart Score history: Moderately Suspicious Heart Score EKG: Non-Specific repolarization disturbance Heart Score Age: > or = 65 years old Heart Score risk factors: > 3 risk factors or hx of atherosclerotic disease Heart Score troponin: < or = to normal limit Heart Score Total: 6 Course Orders Ordered: ED Orders 12/10/24 08:31 XR chest 1V Stat EKG-12 Lead Stat RT Consult Eval and Treat STAT 12/10/24 08:32 Complete Blood Count AUTO DIFF Stat Comprehensive Metabolic Panel Stat Lactate (Lactic Acid) Stat Lipase Stat NT-proBNP (BNP-Adult 18+) Stat Prothrombin Time INR Stat Troponin & CK Cardiac Panel Stat 12/10/24 08:36 CT angio chest PE protocol Stat 12/10/24 10:36 EKG-12 Lead Stat 12/10/24 10:57 Trop I [Troponin I] Stat 12/10/24 12:07 CT abdomen pelvis wo con Stat 12/10/24 14:08 Troponin I Stat 12/10/24 14:09 EKG-12 Lead Stat Sodium Chloride (Normal Saline 0.9%) 1,000 mls @ 150 mls/hr IV CONT CRISTINA Last Admin: 12/10/24 08:47 Dose: 150 mls/hr Documented By: KAYLA Nitroglycerin (Nitroglycerin 0.4 Mg Sl Tab) 0.4 mg SL [id number] PRN PRN Reason: Chest Pain Last Admin: 12/10/24 10:49 Dose: 0.4 mg Documented By: Admin: 12/10/24 10:17 Dose: 0.4 mg Documented By: KAYLA Discontinued Medications Aspirin (Aspirin 81 Mg Chew Tab) 324 mg PO NOW ONE Stop: 12/10/24 08:36 Last Admin: 12/10/24 08:46 Dose: 324 mg Documented By: KAYLA Aspirin (Aspirin Ec 325 Mg Tablet) 325 mg PO NOW ONE Stop: 12/10/24 08:39 Diltiazem HCl (Diltiazem 25 Mg/5 Ml Sdv) 25 mg IV NOW ONE Stop: 12/10/24 08:49 Last Admin: 12/10/24 09:13 Dose: 10 mg Documented By: KAYLA Hydromorphone HCl (Hydromorphone 1 Mg Inj) 1 mg IV NOW ONE Stop: 12/10/24 12:08 Last Admin: 12/10/24 12:10 Dose: 1 mg Documented By: TREVER Morphine Sulfate (Morphine 4 Mg/Ml Inj) 4 mg IV NOW ONE Stop: 12/10/24 08:39 Last Admin: 12/10/24 08:46 Dose: 4 mg Documented By: LM Vital Signs Vital signs: Vital Signs - 8 hr 12/10/24 08:23 12/10/24 08:25 12/10/24 08:25 Temperature Pulse Rate 97 H Respiratory Rate Blood Pressure 140/71 Pulse Oximetry 81 L 96 Oxygen Delivery Method 12/10/24 08:29 12/10/24 08:30 12/10/24 08:31 Temperature 97.9 F Pulse Rate 99 H 100 H Respiratory Rate 24 21 Blood Pressure 140/71 145/85 H Pulse Oximetry 96 96 Oxygen Delivery Method Room Air 12/10/24 08:31 12/10/24 09:02 12/10/24 09:03 Temperature Pulse Rate 110 H 101 H 99 H Respiratory Rate 25 H 24 7 L Blood Pressure Pulse Oximetry 95 93 94 Oxygen Delivery Method 12/10/24 09:03 12/10/24 09:30 12/10/24 09:31 Temperature Pulse Rate 82 85 Respiratory Rate 20 18 Blood Pressure 166/87 H Pulse Oximetry 92 92 Oxygen Delivery Method 12/10/24 09:31 12/10/24 10:00 12/10/24 10:00 Temperature Pulse Rate 83 Respiratory Rate 20 Blood Pressure 137/82 132/75 Pulse Oximetry 93 Oxygen Delivery Method 12/10/24 10:17 12/10/24 10:30 12/10/24 10:30 Temperature Pulse Rate 88 94 H Respiratory Rate 24 Blood Pressure 132/75 129/60 Pulse Oximetry 90 L Oxygen Delivery Method 12/10/24 10:49 Temperature Pulse Rate 86 Respiratory Rate Blood Pressure 129/60 Pulse Oximetry Oxygen Delivery Method MDM - Chest Pain Lab Data 12/10/24 08:32 12/10/24 08:32 Labs: Lab Results 12/10/24 12/10/24 12/10/24 Range/Units 08:32 08:32 08:32 WBC 12.2 H (4.5-11.0) X10^3/uL RBC 4.48 L (4.5-5.9) X10^6/uL Hgb 14.4 (13.5-17.5) g/dL Hct 42.6 (41-53) % MCV 95.2 (80-100) fL MCH 32.2 (26-34) PG MCHC 33.8 (30-36) % RDW 14.9 H (11.6-14.8) % Plt Count 174 (150-400) X10^3/uL Neut % (Auto) 76.4 H (50-75) % Lymph % (Auto) 14.3 L (25-40) % [place] % (Auto) 8.4 (3-14) % Eos % (Auto) 0.4 L (2-4) % Baso % (Auto) 0.5 (0-2) % Neut # (Auto) 9400 H (9156-7422) /uL Lymph # (Auto) 1800 (5918-6425) /uL [place] # (Auto) 1000 H (0-900) /uL Eos # (Auto) 100 (0-450) /uL Baso # (Auto) 100 (0-100) /uL PT 16.6 H (9.4-12.5) SECONDS INR 1.5 H (0.9-1.3) Sodium Cancelled 138 Potassium Cancelled 4.1 Chloride Cancelled Carbon Dioxide BUN Creatinine Estimated GFR BUN/Creatinine Ratio Glucose Lactate (0.7-2.1) mmol/L Calcium Total Bilirubin AST ALT Alkaline Phosphatase Total Creatine Kinase (55-170) U/L Troponin I NT-Pro-B Natriuret Pep (<450) pg/mL Total Protein Albumin Globulin Albumin/Globulin Ratio Lipase (23-300) U/L 12/10/24 12/10/24 12/10/24 Range/Units 08:32 08:32 08:32 WBC (4.5-11.0) X10^3/uL RBC (4.5-5.9) X10^6/uL Hgb (13.5-17.5) g/dL Hct (41-53) % MCV (80-100) fL MCH (26-34) PG MCHC (30-36) % RDW (11.6-14.8) % Plt Count (150-400) X10^3/uL Neut % (Auto) (50-75) % Lymph % (Auto) (25-40) % [place] % (Auto) (3-14) % Eos % (Auto) (2-4) % Baso % (Auto) (0-2) % Neut # (Auto) (9671-2147) /uL Lymph # (Auto) (7378-5165) /uL [place] # (Auto) (0-900) /uL Eos # (Auto) (0-450) /uL Baso # (Auto) (0-100) /uL PT (9.4-12.5) SECONDS INR (0.9-1.3) Sodium Potassium Chloride 103 Carbon Dioxide Cancelled 25 BUN Cancelled 23 H Creatinine Cancelled Estimated GFR BUN/Creatinine Ratio Glucose Lactate (0.7-2.1) mmol/L Calcium Total Bilirubin AST ALT Alkaline Phosphatase Total Creatine Kinase (55-170) U/L Troponin I NT-Pro-B Natriuret Pep (<450) pg/mL Total Protein Albumin Globulin Albumin/Globulin Ratio Lipase (23-300) U/L 12/10/24 12/10/24 12/10/24 Range/Units 08:32 08:32 08:32 WBC (4.5-11.0) X10^3/uL RBC (4.5-5.9) X10^6/uL Hgb (13.5-17.5) g/dL Hct (41-53) % MCV (80-100) fL MCH (26-34) PG MCHC (30-36) % RDW (11.6-14.8) % Plt Count (150-400) X10^3/uL Neut % (Auto) (50-75) % Lymph % (Auto) (25-40) % [place] % (Auto) (3-14) % Eos % (Auto) (2-4) % Baso % (Auto) (0-2) % Neut # (Auto) (1297-0738) /uL Lymph # (Auto) (0587-5064) /uL [place] # (Auto) (0-900) /uL Eos # (Auto) (0-450) /uL Baso # (Auto) (0-100) /uL PT (9.4-12.5) SECONDS INR (0.9-1.3) Sodium Potassium Chloride Carbon Dioxide BUN Creatinine 1.17 Estimated GFR Cancelled > 60 BUN/Creatinine Ratio Cancelled 19.7 Glucose Cancelled Lactate (0.7-2.1) mmol/L Calcium Total Bilirubin AST ALT Alkaline Phosphatase Total Creatine Kinase (55-170) U/L Troponin I NT-Pro-B Natriuret Pep (<450) pg/mL Total Protein Albumin Globulin Albumin/Globulin Ratio Lipase (23-300) U/L 12/10/24 12/10/24 12/10/24 Range/Units 08:32 08:32 08:32 WBC (4.5-11.0) X10^3/uL RBC (4.5-5.9) X10^6/uL Hgb (13.5-17.5) g/dL Hct (41-53) % MCV (80-100) fL MCH (26-34) PG MCHC (30-36) % RDW (11.6-14.8) % Plt Count (150-400) X10^3/uL Neut % (Auto) (50-75) % Lymph % (Auto) (25-40) % [place] % (Auto) (3-14) % Eos % (Auto) (2-4) % Baso % (Auto) (0-2) % Neut # (Auto) (7366-8173) /uL Lymph # (Auto) (2495-9000) /uL [place] # (Auto) (0-900) /uL Eos # (Auto) (0-450) /uL Baso # (Auto) (0-100) /uL PT (9.4-12.5) SECONDS INR (0.9-1.3) Sodium Potassium Chloride Carbon Dioxide BUN Creatinine Estimated GFR BUN/Creatinine Ratio Glucose 129 H Lactate 1.7 (0.7-2.1) mmol/L Calcium Cancelled 9.4 Total Bilirubin Cancelled 0.9 AST Cancelled ALT Alkaline Phosphatase Total Creatine Kinase (55-170) U/L Troponin I NT-Pro-B Natriuret Pep (<450) pg/mL Total Protein Albumin Globulin Albumin/Globulin Ratio Lipase (23-300) U/L 12/10/24 12/10/24 12/10/24 Range/Units 08:32 08:32 08:32 WBC (4.5-11.0) X10^3/uL RBC (4.5-5.9) X10^6/uL Hgb (13.5-17.5) g/dL Hct (41-53) % MCV (80-100) fL MCH (26-34) PG MCHC (30-36) % RDW (11.6-14.8) % Plt Count (150-400) X10^3/uL Neut % (Auto) (50-75) % Lymph % (Auto) (25-40) % [place] % (Auto) (3-14) % Eos % (Auto) (2-4) % Baso % (Auto) (0-2) % Neut # (Auto) (0668-4826) /uL Lymph # (Auto) (5621-2609) /uL [place] # (Auto) (0-900) /uL Eos # (Auto) (0-450) /uL Baso # (Auto) (0-100) /uL PT (9.4-12.5) SECONDS INR (0.9-1.3) Sodium Potassium Chloride Carbon Dioxide BUN Creatinine Estimated GFR BUN/Creatinine Ratio Glucose Lactate (0.7-2.1) mmol/L Calcium Total Bilirubin AST 65 H ALT Cancelled 64 H Alkaline Phosphatase Cancelled 148 H Total Creatine Kinase 51 L (55-170) U/L Troponin I Cancelled NT-Pro-B Natriuret Pep (<450) pg/mL Total Protein Albumin Globulin Albumin/Globulin Ratio Lipase (23-300) U/L 12/10/24 12/10/24 12/10/24 Range/Units 08:32 08:32 08:32 WBC (4.5-11.0) X10^3/uL RBC (4.5-5.9) X10^6/uL Hgb (13.5-17.5) g/dL Hct (41-53) % MCV (80-100) fL MCH (26-34) PG MCHC (30-36) % RDW (11.6-14.8) % Plt Count (150-400) X10^3/uL Neut % (Auto) (50-75) % Lymph % (Auto) (25-40) % [place] % (Auto) (3-14) % Eos % (Auto) (2-4) % Baso % (Auto) (0-2) % Neut # (Auto) (7173-7657) /uL Lymph # (Auto) (4435-6252) /uL [place] # (Auto) (0-900) /uL Eos # (Auto) (0-450) /uL Baso # (Auto) (0-100) /uL PT (9.4-12.5) SECONDS INR (0.9-1.3) Sodium Potassium Chloride Carbon Dioxide BUN Creatinine Estimated GFR BUN/Creatinine Ratio Glucose Lactate (0.7-2.1) mmol/L Calcium Total Bilirubin AST ALT Alkaline Phosphatase Total Creatine Kinase (55-170) U/L Troponin I < 0.012 NT-Pro-B Natriuret Pep 553 H (<450) pg/mL Total Protein Cancelled 7.7 Albumin Cancelled 4.5 Globulin Cancelled Albumin/Globulin Ratio Lipase (23-300) U/L 12/10/24 12/10/24 12/10/24 Range/Units 08:32 08:32 10:57 WBC (4.5-11.0) X10^3/uL RBC (4.5-5.9) X10^6/uL Hgb (13.5-17.5) g/dL Hct (41-53) % MCV (80-100) fL MCH (26-34) PG MCHC (30-36) % RDW (11.6-14.8) % Plt Count (150-400) X10^3/uL Neut % (Auto) (50-75) % Lymph % (Auto) (25-40) % [place] % (Auto) (3-14) % Eos % (Auto) (2-4) % Baso % (Auto) (0-2) % Neut # (Auto) (7303-8890) /uL Lymph # (Auto) (5269-6989) /uL [place] # (Auto) (0-900) /uL Eos # (Auto) (0-450) /uL Baso # (Auto) (0-100) /uL PT (9.4-12.5) SECONDS INR (0.9-1.3) Sodium Potassium Chloride Carbon Dioxide BUN Creatinine Estimated GFR BUN/Creatinine Ratio Glucose Lactate (0.7-2.1) mmol/L Calcium Total Bilirubin AST ALT Alkaline Phosphatase Total Creatine Kinase (55-170) U/L Troponin I < 0.012 NT-Pro-B Natriuret Pep (<450) pg/mL Total Protein Albumin Globulin 3.2 Albumin/Globulin Ratio Cancelled 1.4 Lipase 492 H (23-300) U/L 12/10/24 Range/Units 14:08 WBC (4.5-11.0) X10^3/uL RBC (4.5-5.9) X10^6/uL Hgb (13.5-17.5) g/dL Hct (41-53) % MCV (80-100) fL MCH (26-34) PG MCHC (30-36) % RDW (11.6-14.8) % Plt Count (150-400) X10^3/uL Neut % (Auto) (50-75) % Lymph % (Auto) (25-40) % [place] % (Auto) (3-14) % Eos % (Auto) (2-4) % Baso % (Auto) (0-2) % Neut # (Auto) (2420-2191) /uL Lymph # (Auto) (9328-1617) /uL [place] # (Auto) (0-900) /uL Eos # (Auto) (0-450) /uL Baso # (Auto) (0-100) /uL PT (9.4-12.5) SECONDS INR (0.9-1.3) Sodium Potassium Chloride Carbon Dioxide BUN Creatinine Estimated GFR BUN/Creatinine Ratio Glucose Lactate (0.7-2.1) mmol/L Calcium Total Bilirubin AST ALT Alkaline Phosphatase Total Creatine Kinase (55-170) U/L Troponin I < 0.012 NT-Pro-B Natriuret Pep (<450) pg/mL Total Protein Albumin Globulin Albumin/Globulin Ratio Lipase (23-300) U/L Imaging Data Chest x-ray: Radiologist's Impression: [address] [address] XRay Report Signed Patient: Amor Hammer MR#: [id number] : 1940 Acct:[id number] Age/Sex: 84 / M Date of Service: 12/10/24 Loc: ED Accession Number: [id number] Procedure: XR chest 1V Ordering Provider: Amor Rahman D.O. PROCEDURE: XR CHEST 1V INDICATIONS: Shortness of breath TECHNIQUE: One view of the chest was acquired. COMPARISON: [facility], CR, XR CHEST 2V, 07/09/2023, 10:56. [facility], CR, XR CHEST 2V, 09/27/2021, 19:30. FINDINGS AND IMPRESSION: Low lung volumes. No dense airspace disease or pleural effusion on this single view study. Cardiomegaly, increased from prior. Degenerative osseous changes. Dictated by: Theron Mehta M.D. on 12/10/2024 at 8:03 Approved by: Theron Mehta M.D. on 12/10/2024 at 8:05 CT scan - chest: Radiologist's Impression: [address] [address] [address] Scan Report Signed Patient: Amor Hammer MR#: [id number] : 1940 Acct:[id number] Age/Sex: 84 / M Date of Service: 12/10/24 Loc: ED Accession Number: [id number] Procedure: CT angio chest PE protocol Ordering Provider: Amor Rahman D.O. PROCEDURE: CT ANGIO CHEST PE PROTOCOL INDICATIONS: chst pain/ sob/dale/morbid obesity/ afib/tachy TECHNIQUE: After the administration of intravenous contrast, 2 mm thick sections acquired from the pulmonary apices to the posterior costophrenic angles. 3-dimensional maximum intensity projection (MIP) coronal and sagittal reformats were then acquired through the thorax. For radiation dose reduction, the following was used: automated exposure control, adjustment of mA and/or kV according to patient size. COMPARISON: Not available FINDINGS: Image quality: Diagnostic Lungs and pleura: No airspace consolidation. Basal atelectasis. No pleural effusions. Few small nodules are present, for example in the right lung subpleural region image 5/181 measuring 4 mm. Mediastinum, heart, and esophagus: No acute pulmonary embolism. Unremarkable esophagus. There are coronary calcifications and cardiomegaly. Mediastinal lipomatosis. No pathologic lymphadenopathy by size criteria Chest wall and thyroid: Unremarkable Upper abdomen: Suspect hepatic steatosis. Bones: There are degenerative osseous changes. No aggressive appearing osseous abnormality. Right anterior rib deformities, probably nonacute IMPRESSION: No acute pulmonary embolism. No dense airspace disease or pleural effusions. Cardiomegaly and coronary calcifications. Small pulmonary nodules under 6 mm, for which follow-up imaging is optional in 1 year for high risk patients. Other findings above. Dictated by: Theron Mehta M.D. on 12/10/2024 at 8:23 Approved by: Theron Mehta M.D. on 12/10/2024 at 8:27 CT scan - abdomen/pelvis: Radiologist's Impression: [address] [address] [address] Scan Report Signed Patient: Amor Hammer MR#: [id number] : 1940 Acct:[id number] Age/Sex: 84 / M Date of Service: 12/10/24 Loc: ED Accession Number: [id number] Procedure: CT abdomen pelvis wo con Ordering Provider: Amor Rahman D.O. PROCEDURE: CT ABDOMEN PELVIS WO CON INDICATIONS: epigastric pain/ elevated lipase TECHNIQUE: CT of the abdomen and pelvis was obtained without intravenous contrast. Coronal and sagittal reformats were performed. For radiation dose reduction, the following was used: automated exposure control, adjustment of mA and/or kV according to patient size. COMPARISON: [facility], CT, CT ANGIO CHEST ABDOMEN PELVIS, 09/27/2021, 19:49. FINDINGS: Image quality: Diagnostic Lower chest: Separately dictated. Liver: At least moderate hepatic steatosis. No contour deforming mass Gallbladder and biliary system: Unremarkable, nondilated Pancreas: Oibm-ga-nmwforcn parenchymal atrophy without ductal dilation. No significant surrounding edema Spleen: Nonenlarged Adrenals: No discrete nodules Kidneys: No contour deforming mass. Contrast excretion is seen from prior CT. Vessels and lymph nodes: No abdominal aortic aneurysm. No enlarged lymph nodes by size criteria. Bowel and peritoneum: No evidence of small bowel obstruction. Colonic diverticulosis. Nondilated appendix No drainable fluid collection or ascites Body wall: Unremarkable Pelvis: Small bladder diverticula. Prostate is unremarkable on limited non-contrast CT. Bones: No aggressive appearing osseous abnormality. Degenerative changes are seen. IMPRESSION: No significant peripancreatic edema on noncontrast CT. No biliary ductal dilation identified. There is qozs-oe-sozwlhvy atrophy of the pancreatic parenchyma. Other findings above. Dictated by: Theron Mehta M.D. on 12/10/2024 at 12:52 Approved by: Theron Mehta M.D. on 12/10/2024 at 12:55 ECG Data Interpretation: AFib RVR HR 104 [place] undetermined QRS [address]-t wave change No previous to compare MDM Narrative Medical decision making narrative: Vital signs, nurse triage note, medication list, previous ER visits, and all imaging studies reviewed. Chest x-ray showed low lung volume no dense airspace disease or pleural effusion. Cardiomegaly. Degenerative osseous changes. CTA showed no acute PE no dense airspace disease or pleural effusion. Cardiomegaly and coronary calcification. Small pulmonary nodule under 6 mm. Patient received aspirin 324 mg, nitro sublingual x3, morphine 4 mg, Dilaudid 1 mg, and diltiazem 25 mg now rate controlled from or AFib RVR. Differential diagnosis STEMI NSTEMI GERD pancreatitis unstable angina PE. Case discussed with Dr. Guo who has graciously accepted the patient for inpatient admission Discharge Plan Departure Patient Disposition: Admitted As Inpatient Clinical Impression: Atrial fibrillation with rapid ventricular response Chest pain Qualifiers: Chest pain type: chest pain on breathing Qualified Code(s): R07.1 - Chest pain on breathing Admit Date/Time: 12/10/24 15:21 Admit Provider: Tl Guo
--- NOTE | 2024-12-10 08:31 | DI.RAD.S_ITS ---
PROCEDURE: XR CHEST 1V INDICATIONS: Shortness of breath TECHNIQUE: One view of the chest was acquired. COMPARISON: [facility], CR, XR CHEST 2V, 07/09/2023, 10:56. [facility], CR, XR CHEST 2V, 09/27/2021, 19:30. FINDINGS AND IMPRESSION: Low lung volumes. No dense airspace disease or pleural effusion on this single view study. Cardiomegaly, increased from prior. Degenerative osseous changes. Dictated by: Theron Mehta M.D. on 12/10/2024 at 8:03 Approved by: Theron Mehta M.D. on 12/10/2024 at 8:05
--- NOTE | 2024-12-10 08:36 | DI.CT.S_ITS ---
PROCEDURE: CT ANGIO CHEST PE PROTOCOL INDICATIONS: chst pain/ sob/dale/morbid obesity/ afib/tachy TECHNIQUE: After the administration of intravenous contrast, 2 mm thick sections acquired from the pulmonary apices to the posterior costophrenic angles. 3-dimensional maximum intensity projection (MIP) coronal and sagittal reformats were then acquired through the thorax. For radiation dose reduction, the following was used: automated exposure control, adjustment of mA and/or kV according to patient size. COMPARISON: Not available FINDINGS: Image quality: Diagnostic Lungs and pleura: No airspace consolidation. Basal atelectasis. No pleural effusions. Few small nodules are present, for example in the right lung subpleural region image 5/181 measuring 4 mm. Mediastinum, heart, and esophagus: No acute pulmonary embolism. Unremarkable esophagus. There are coronary calcifications and cardiomegaly. Mediastinal lipomatosis. No pathologic lymphadenopathy by size criteria Chest wall and thyroid: Unremarkable Upper abdomen: Suspect hepatic steatosis. Bones: There are degenerative osseous changes. No aggressive appearing osseous abnormality. Right anterior rib deformities, probably nonacute IMPRESSION: No acute pulmonary embolism. No dense airspace disease or pleural effusions. Cardiomegaly and coronary calcifications. Small pulmonary nodules under 6 mm, for which follow-up imaging is optional in 1 year for high risk patients. Other findings above. Dictated by: Theron Mehta M.D. on 12/10/2024 at 8:23 Approved by: Theron Mehta M.D. on 12/10/2024 at 8:27
[2024-12-10] MEDS: MORPHINE 4 MG/ML INJ IV (08:46)
[2024-12-10] MEDS: ASPIRIN 81 MG CHEW TAB 324 MG PO (08:46)
[2024-12-10 08:47] LABS: Add Manual Diff / Slide Review NO; Hematocrit 42.6 % (41-53); Hemoglobin 14.4 g/dL (13.5-17.5); Lymphocytes Absolute Auto 1800 /uL (1100-4500); Mean Corpuscular HGB Conc 33.8 % (30-36); Mean Corpuscular Hemoglobin 32.2 PG (26-34); Mean Corpuscular Volume 95.2 fL (80-100); Platelet Count 174 X10^3/uL (150-400)
[2024-12-10] MEDS: SODIUM CHLORIDE 0.9% 1,000 ML 150 ML IV (08:47)
[2024-12-10 08:50] LABS: INR 1.5 (0.9-1.3); Prothrombin Time 16.6 SECONDS (9.4-12.5)
[2024-12-10 09:02] LABS: Lactate (Lactic Acid) 1.7 mmol/L (0.7-2.1)
[2024-12-10 09:03] LABS: Alanine Aminotransferase 64 IU/L (<50); Albumin 4.5 g/dL (3.5-5.0); Albumin Globulin Ratio 1.4 (1.0-2.8); Alkaline Phosphatase 148 U/L (38-126); Blood Urea Nitrogen 23 mg/dL (9-20); Calcium 9.4 mg/dL (8.4-10.2); Carbon Dioxide 25 mmol/L (22-32); Chloride 103 mmol/L (98-107); Creatine Kinase 51 U/L (55-170); Estimated Glomerular Filt Rate > 60 mL/min (>60); Globulin 3.2 g/dL (1.7-4.1); Glucose 129 mg/dL (70-99); HEMOLYSIS < 15 (0-50); Lipase 492 U/L (23-300); Potassium 4.1 mmol/L (3.4-5.1); Sodium 138 mmol/L (137-145); Total Protein 7.7 g/dL (6.3-8.2)
[2024-12-10 09:14] LABS: Troponin I < 0.012 ng/mL (0.01-0.034)
[2024-12-10 09:37] LABS: NT-proBNP (BNP-Adult 18+) 553 pg/mL (<450)
[2024-12-10] MEDS: NITROGLYCERIN 0.4 MG SL TAB SL ×2 (10:17→10:49)
--- NOTE | 2024-12-10 10:24 | EKG_ITS ---
[address] [address] [address] [address] Test Date: 2024-12-10 Pat Name: mAor Hammer Department: Room: Gender: Male Director Of Trauma: : 1940 Requested By: Order Number: [id number] Reading MD: Amor Fairchild MD Measurements Intervals [place] Rate: 93 P: [place]: QRS: 0 QRSD: 80 T: 27 QT: 354 QTc: 440 Interpretive Statements Atrial fibrillation Electronically Signed On 12-11-2024 8:27:14 PDT by Amor Fairchild MD
[2024-12-10 11:33] LABS: Troponin I < 0.012 ng/mL (0.01-0.034)
--- NOTE | 2024-12-10 12:07 | DI.CT.S_ITS ---
PROCEDURE: CT ABDOMEN PELVIS WO CON INDICATIONS: epigastric pain/ elevated lipase TECHNIQUE: CT of the abdomen and pelvis was obtained without intravenous contrast. Coronal and sagittal reformats were performed. For radiation dose reduction, the following was used: automated exposure control, adjustment of mA and/or kV according to patient size. COMPARISON: [facility], CT, CT ANGIO CHEST ABDOMEN PELVIS, 09/27/2021, 19:49. FINDINGS: Image quality: Diagnostic Lower chest: Separately dictated. Liver: At least moderate hepatic steatosis. No contour deforming mass Gallbladder and biliary system: Unremarkable, nondilated Pancreas: [id number] parenchymal atrophy without ductal dilation. No significant surrounding edema Spleen: Nonenlarged Adrenals: No discrete nodules Kidneys: No contour deforming mass. Contrast excretion is seen from prior CT. Vessels and lymph nodes: No abdominal aortic aneurysm. No enlarged lymph nodes by size criteria. Bowel and peritoneum: No evidence of small bowel obstruction. Colonic diverticulosis. Nondilated appendix No drainable fluid collection or ascites Body wall: Unremarkable Pelvis: Small bladder diverticula. Prostate is unremarkable on limited non-contrast CT. Bones: No aggressive appearing osseous abnormality. Degenerative changes are seen. IMPRESSION: No significant peripancreatic edema on noncontrast CT. No biliary ductal dilation identified. There is [id number] atrophy of the pancreatic parenchyma. Other findings above. Dictated by: Theron Mehta M.D. on 12/10/2024 at 12:52 Approved by: Theron Mehta M.D. on 12/10/2024 at 12:55
[2024-12-10] MEDS: HYDROMORPHONE 1 MG INJ IV (12:10)
--- NOTE | 2024-12-10 14:09 | EKG_ITS ---
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
[2024-12-10 14:52] LABS: Troponin I < 0.012 ng/mL (0.01-0.034)
--- NOTE | 2024-12-10 15:42 | P.HP_ITS ---
History of Present Illness History of Present Illness Date Patient Seen: 12/10/24 Time Patient Seen: 15:42 Chief complaint: Chest discomfort, SOB; can't laydown. Pulse >100 Narrative: This is an 84-year-old male with atrial fibrillation, gout, medical obesity, hypertension, hyperlipidemia, VIPIN, insomnia, depression and anxiety who was recently ?rediagnosed? with atrial fibrillation about a month ago. He has been taking Eliquis and diltiazem but 3 days ago describe worsening insomnia and headache culminating in a miserable night last night where he could not get comfortable because of shortness of breath and pleuritic chest pain with normal volume breaths. He has not had any palpitations, nausea or abdominal pain. The chest pain has been in the middle of the chest. On arrival in the ED he was in AFib with rapid ventricular response which responded to 10 mg of IV diltiazem. His chest pain was treated with aspirin, morphine and finally dilaudid was successful. The chest x-ray did not show any pneumonia. The EKG showed atrial fibrillation with a rate of [address] or T-wave changes. The chest CT and the abdominal/pelvic CT showed no signs of PE, aortic aneurysm, aortic dissection, pericarditis, pericardial effusion or occult neoplasm. I contacted Radiology directly and asked them to make absolutely sure that he did not have a pericardial effusion, which they were able to confirm was true. There are no pericarditis changes on the EKG. On arrival in the ICU he had a blood pressure in the 80 systolic range which then recovered before we could intervene back up above 100 suggesting that it was an equipment mismeasurement. 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 household members: spouse lives independently: Yes caregiver/support person: No occupational status: previously employed alcohol intake: current substance use type: does not use Meds Home Medications and Allergies Home Medications ?Medication ?Instructions ?Recorded ?Confirmed ?Type hydrochlorothiazide 25 mg tablet 25 mg PO DAILY 12/10/24 History lovastatin 20 mg tablet 20 mg PO DAILY 11/05/18 07/10/30 History metoprolol succinate 50 mg 50 mg PO DAILY 11/05/1810/30 History tablet,extended release 24 hr tamsulosin 0.4 mg capsule 0.4 mg PO DAILY 11/05/1810/30 History Respironics Dreamstation 2 CPAP #1 ea 11/28/21 5 History albuterol sulfate 90 mcg/actuation 2 puff inhalation Q 6H PRN 07/09/23 12/10/24 Rx aerosol inhaler shortness of breath or wheez ing #6.7 grams allopurinol 300 mg tablet 300 mg PO DAILY 07/09/2310/30 History fluticasone propionate 50 1 spray intranasal Q12H #16 grams 07/09/23 12/10/24 Rx mcg/actuation nasal spray,suspension (Flonase Allergy Relief) gabapentin 300 mg capsule 400 mg PO DAILY 07/09/2310/30 History inhalational spacing device #1 ea 07/09/23 12/10/24 Rx (Aerochamber MV spacer) apixaban 5 mg tablet (Eliquis) 5 mg PO BID 12/10/24 History chlorthalidone 25 mg tablet 25 mg PO DAILY 12/10/24 History diltiazem HCl 120 mg 120 mg PO DAILY 12/10/2410/30 History capsule,extended release 24 hr levothyroxine 75 mcg tablet 75 mcg PO DAILY 12/10/24 0 12/10/24 History valsartan 160 mg tablet 160 mg PO DAILY 12/10/2410/30 History Allergies Allergy/AdvReac Type Severity Reaction Status Date / Time No Known Drug Allergies Allergy Verified 07/09/23 10:41 Review of Systems Review of Systems Narrative: Positive for chest pain and shortness of breath. Negative for fevers, chills, sweats, coughing, abdominal pain, nausea, vomiting, dysuria, bleeding, rashes, back pain, headache, new allergies. Exam Vital Signs (past 8 hours): - 12/10/24 08:23 12/10/24 08:25 12/10/24 08:25 Temperature Pulse Rate 97 H Respiratory Rate Blood Pressure 140/71 Pulse Oximetry 81 L 96 Oxygen Delivery Method 12/10/24 08:29 12/10/24 08:30 12/10/24 08:31 Temperature 97.9 F Pulse Rate 99 H 100 H Respiratory Rate 24 21 Blood Pressure 140/71 145/85 H Pulse Oximetry 96 96 Oxygen Delivery Method Room Air 12/10/24 08:31 12/10/24 09:02 12/10/24 09:03 Temperature Pulse Rate 110 H 101 H 99 H Respiratory Rate 25 H 24 7 L Blood Pressure Pulse Oximetry 95 93 94 Oxygen Delivery Method 12/10/24 09:03 12/10/24 09:30 12/10/24 09:31 Temperature Pulse Rate 82 85 Respiratory Rate 20 18 Blood Pressure 166/87 H Pulse Oximetry 92 92 Oxygen Delivery Method 12/10/24 09:31 12/10/24 10:00 12/10/24 10:00 Temperature Pulse Rate 83 Respiratory Rate 20 Blood Pressure 137/82 132/75 Pulse Oximetry 93 Oxygen Delivery Method 12/10/24 10:17 12/10/24 10:30 12/10/24 10:30 Temperature Pulse Rate 88 94 H Respiratory Rate 24 Blood Pressure 132/75 129/60 Pulse Oximetry 90 L Oxygen Delivery Method 12/10/24 10:49 Temperature Pulse Rate 86 Respiratory Rate Blood Pressure 129/60 Pulse Oximetry Oxygen Delivery Method Oxygen Delivery Method Room Air Narrative Exam Narrative: Alert, oriented x3, no apparent distress. On my follow-up exam he was in significant respiratory distress. Pupils are equally round reactive to light and accommodation. Extraocular muscles are intact. No lymph nodes are felt head, neck, supraclavicular area. There is no thyromegaly JVD is less than 6 cm No carotid bruits are heard. Heart is irregularly irregular with out murmur. Lungs are clear to auscultation bilaterally Abdomen is very obese, nontender, no organomegaly, bowel sounds positive. Chest is not tender Skin has no rash or jaundice Neurologic exam: Reflexes are symmetric Cranial nerves 2-12 test intact Motor is 4/5 throughout There is no tremor. Extremities have no ankle edema Objective Labs 12/10/24 08:32 12/10/24 08:32 Labs: Laboratory Results - last 24 hr 12/10/24 12/10/24 12/10/24 08:32 08:32 08:32 WBC 12.2 H RBC 4.48 L Hgb 14.4 Hct 42.6 MCV 95.2 MCH 32.2 MCHC 33.8 RDW 14.9 H Plt Count 174 Neut % (Auto) 76.4 H Lymph % (Auto) 14.3 L [place] % (Auto) 8.4 Eos % (Auto) 0.4 L Baso % (Auto) 0.5 Neut # (Auto) 9400 H Lymph # (Auto) 1800 [place] # (Auto) 1000 H Eos # (Auto) 100 Baso # (Auto) 100 PT 16.6 H INR 1.5 H Sodium Cancelled 138 Potassium Cancelled 4.1 Chloride Cancelled Carbon Dioxide BUN Creatinine Estimated GFR BUN/Creatinine Ratio Glucose Lactate Calcium Total Bilirubin AST ALT Alkaline Phosphatase Total Creatine Kinase Troponin I NT-Pro-B Natriuret Pep Total Protein Albumin Globulin Albumin/Globulin Ratio Lipase 12/10/24 12/10/24 12/10/24 08:32 08:32 08:32 WBC RBC Hgb Hct MCV MCH MCHC RDW Plt Count Neut % (Auto) Lymph % (Auto) [place] % (Auto) Eos % (Auto) Baso % (Auto) Neut # (Auto) Lymph # (Auto) [place] # (Auto) Eos # (Auto) Baso # (Auto) PT INR Sodium Potassium Chloride 103 Carbon Dioxide Cancelled 25 BUN Cancelled 23 H Creatinine Cancelled Estimated GFR BUN/Creatinine Ratio Glucose Lactate Calcium Total Bilirubin AST ALT Alkaline Phosphatase Total Creatine Kinase Troponin I NT-Pro-B Natriuret Pep Total Protein Albumin Globulin Albumin/Globulin Ratio Lipase 12/10/24 12/10/24 12/10/24 08:32 08:32 08:32 WBC RBC Hgb Hct MCV MCH MCHC RDW Plt Count Neut % (Auto) Lymph % (Auto) [place] % (Auto) Eos % (Auto) Baso % (Auto) Neut # (Auto) Lymph # (Auto) [place] # (Auto) Eos # (Auto) Baso # (Auto) PT INR Sodium Potassium Chloride Carbon Dioxide BUN Creatinine 1.17 Estimated GFR Cancelled > 60 BUN/Creatinine Ratio Cancelled 19.7 Glucose Cancelled Lactate Calcium Total Bilirubin AST ALT Alkaline Phosphatase Total Creatine Kinase Troponin I NT-Pro-B Natriuret Pep Total Protein Albumin Globulin Albumin/Globulin Ratio Lipase 12/10/24 12/10/24 12/10/24 08:32 08:32 08:32 WBC RBC Hgb Hct MCV MCH MCHC RDW Plt Count Neut % (Auto) Lymph % (Auto) [place] % (Auto) Eos % (Auto) Baso % (Auto) Neut # (Auto) Lymph # (Auto) [place] # (Auto) Eos # (Auto) Baso # (Auto) PT INR Sodium Potassium Chloride Carbon Dioxide BUN Creatinine Estimated GFR BUN/Creatinine Ratio Glucose 129 H Lactate 1.7 Calcium Cancelled 9.4 Total Bilirubin Cancelled 0.9 AST Cancelled ALT Alkaline Phosphatase Total Creatine Kinase Troponin I NT-Pro-B Natriuret Pep Total Protein Albumin Globulin Albumin/Globulin Ratio Lipase 12/10/24 12/10/24 12/10/24 08:32 08:32 08:32 WBC RBC Hgb Hct MCV MCH MCHC RDW Plt Count Neut % (Auto) Lymph % (Auto) [place] % (Auto) Eos % (Auto) Baso % (Auto) Neut # (Auto) Lymph # (Auto) [place] # (Auto) Eos # (Auto) Baso # (Auto) PT INR Sodium Potassium Chloride Carbon Dioxide BUN Creatinine Estimated GFR BUN/Creatinine Ratio Glucose Lactate Calcium Total Bilirubin AST 65 H ALT Cancelled 64 H Alkaline Phosphatase Cancelled 148 H Total Creatine Kinase 51 L Troponin I Cancelled NT-Pro-B Natriuret Pep Total Protein Albumin Globulin Albumin/Globulin Ratio Lipase 12/10/24 12/10/24 12/10/24 08:32 08:32 08:32 WBC RBC Hgb Hct MCV MCH MCHC RDW Plt Count Neut % (Auto) Lymph % (Auto) [place] % (Auto) Eos % (Auto) Baso % (Auto) Neut # (Auto) Lymph # (Auto) [place] # (Auto) Eos # (Auto) Baso # (Auto) PT INR Sodium Potassium Chloride Carbon Dioxide BUN Creatinine Estimated GFR BUN/Creatinine Ratio Glucose Lactate Calcium Total Bilirubin AST ALT Alkaline Phosphatase Total Creatine Kinase Troponin I < 0.012 NT-Pro-B Natriuret Pep 553 H Total Protein Cancelled 7.7 Albumin Cancelled 4.5 Globulin Cancelled Albumin/Globulin Ratio Lipase 12/10/24 12/10/24 12/10/24 08:32 08:32 10:57 WBC RBC Hgb Hct MCV MCH MCHC RDW Plt Count Neut % (Auto) Lymph % (Auto) [place] % (Auto) Eos % (Auto) Baso % (Auto) Neut # (Auto) Lymph # (Auto) [place] # (Auto) Eos # (Auto) Baso # (Auto) PT INR Sodium Potassium Chloride Carbon Dioxide BUN Creatinine Estimated GFR BUN/Creatinine Ratio Glucose Lactate Calcium Total Bilirubin AST ALT Alkaline Phosphatase Total Creatine Kinase Troponin I < 0.012 NT-Pro-B Natriuret Pep Total Protein Albumin Globulin 3.2 Albumin/Globulin Ratio Cancelled 1.4 Lipase 492 H 12/10/24 14:08 WBC RBC Hgb Hct MCV MCH MCHC RDW Plt Count Neut % (Auto) Lymph % (Auto) [place] % (Auto) Eos % (Auto) Baso % (Auto) Neut # (Auto) Lymph # (Auto) [place] # (Auto) Eos # (Auto) Baso # (Auto) PT INR Sodium Potassium Chloride Carbon Dioxide BUN Creatinine Estimated GFR BUN/Creatinine Ratio Glucose Lactate Calcium Total Bilirubin AST ALT Alkaline Phosphatase Total Creatine Kinase Troponin I < 0.012 NT-Pro-B Natriuret Pep Total Protein Albumin Globulin Albumin/Globulin Ratio Lipase Assessment & Plan Assessment & Plan narrative: This is an 84-year-old male with atrial fibrillation, medical obesity, hypertension and VIPIN who was recently ?rediagnosed? with atrial fibrillation about a month ago. He has been taking Eliquis and diltiazem but 3 days ago describe worsening insomnia and headache culminating in a miserable night last night where he could not get comfortable because of shortness of breath and pleuritic chest pain with normal volume breaths. The chest pain has been in the middle of the chest. On arrival in the ED he was in AFib with rapid ventricular response which responded to 10 mg of IV diltiazem. His chest pain was treated with aspirin, morphine and finally dilaudid was successful. Pleuritic Chest Pain, present on admission, acute. -Testing has ruled out VA, Pericarditis, Aortic Dissection and Pancreatitis -Lipase [address] negative for other signs of pancreatitis, follow. -Troponin normal X 3, EKG AF without acute ST or T changes -Rate control with IV Diltiazem -Dilaudid IV for musculoskeletal pleuritic chest pain. -Continue Gabapentin -Echocardiogram Afib with RVR, present on admission, acute. -IV Diltiazem drip -Apixaban -Metoprolol. Rule out CHF, present on admission, acute -BNP 553, check Echo -Cautious IVF support Hypertension, present on admission, chronic. -Chlorthalidone, Metoprolol, Diltiazem, Valsartan Hypothyroidism, present on admission, chronic. -Levothyroxine -Check TSH BPH, present on admission, chronic. -Tamsulosin Gout, present on admission, chronic -Allopurinol Hepatic Steatosis -AST 65, ALT 64, Aphos 148 -moderate hepatic steatosis on CT Eliquis for DVT prevention His is his backup decisionmaker Time-Based Coding :: [TOTAL MINUTES] spent with patient and on the chart (including review of chart, obtaining history, exam, reviewing outside data, placing orders, documenting exam and treatment plan, and counseling patient) on [DATE].
[2024-12-10] MEDS: SODIUM CHLORIDE 0.9% 1,000 ML 70 ML IV (17:10)
--- NOTE | 2024-12-10 17:12 | DI.ECHO.S_ITS ---
[place] [facility]+ [facility] : : [address] : : [place] : : [id number] : : Phone: [phone] Echocardiogram Report + + :Name: ROBERTH SONG Study Date: 12/11/2024 Height: 70 in : :[facility] ReadingLocation: Weight: 306 lb: : Gender: Male BSA: 2.5 m2 : :: 1940 Age: 84 yrs BP: 99/56 mmHg: :Reason For Study: CONGESTIVE HEART FAILURE : :Ordering Physician: SHAHAB, : :KATHERIN Maza Performed By: Bhavani Farooq : :Referring: KATHERIN GUDINO : + + Interpretation Summary 1) Normal left ventricular size and systolic function (EF 55-60%). 2) Mildly enlarged right ventricle with mildly reduced function. 3) No significant valvular abnormalities. 4) Compared to the Echo done 10/14/2017, no significant change. Procedure: A two-dimensional transthoracic echocardiogram with color flow and Doppler was performed. The study quality was technically difficult. Comparison is made with the echocardiogram of 10/14/2017. The patient was in atrial fibrillation with heart rates between 75-95 bpm during the exam. Left Ventricle: The left ventricle is normal in size. Left ventricular wall thickness is at the upper limits of normal. The ejection fraction is estimated to be 55-60%. There are no obvious focal wall motion abnormalities noted but poor endocardial definition reduces the sensitivity for the detection of such. Diastolic function could not be accurately assessed due to atrial fibrillation. Right Ventricle: The right ventricle is mildly dilated. The right ventricle is not well visualized. Right ventricular systolic function is mildly reduced. Atria: The left atrial size is normal. Right atrial size is normal. There is no Doppler evidence for an interatrial shunt. Mitral Valve: The mitral valve leaflets appear mildly thickened, but open well. There is mild to moderate mitral annular calcification. There is no mitral regurgitation noted. Aortic Valve: The aortic valve is trileaflet. The aortic valve opens well. There is no aortic valve stenosis. No aortic regurgitation is present. Tricuspid Valve: The tricuspid valve is not well visualized, but is grossly normal. There is mild tricuspid regurgitation. Right ventricular systolic pressure is estimated to be 25 mmHg plus the clinically estimated CVP which cannot be estimated on this exam. Pulmonic Valve: The pulmonic valve is not well seen, but is grossly normal. There is mild pulmonic regurgitation. Great Vessels: The aortic root is borderline dilated. The ascending aorta is at the upper limits of normal in size. The inferior vena cava was not well visualized. Pericardium/ Pleura There is no pericardial effusion. There is an anterior echo-free space consistent with a fat pad. There is no pleural effusion. MMode/2D Measurements & Calculations LVIDd: 4.1 cm LVOT diam: 2.1 cm LVIDs: 3.1 cm Ao root diam: 4.1 cm FS: 24.4 % asc Aorta Diam: 4.2 cm IVSd: 1.0 cm Ao Arch Diam (Prox Trans): 3.5 cm LVPWd: 1.1 cm LV scott. diameter/BSA (cm/m^2): 1.7 LV sys. diameter/BSA (cm/m^2): 1.3 LA A2 area: 18.9 cm2 RA long axis: 5.1 cm LA A4 area: 19.3 cm2 RA area: 19.0 cm2 LA length (vol): 5.9 cm RA vol: 60.2 ml LA vol: 52.3 ml RA : 24.1 ml/m2 LA vol index: 20.9 ml/m2 RVD1 (basal): 4.1 cm RVD2 (mid): 3.6 cm TAPSE: 1.5 cm Doppler Measurements & Calculations Ao V2 max: 112.6 cm/sec LVOT Max Marta: 110.6 cm/sec Ao V2 mean: 80.3 cm/sec LV V1 max P.9 mmHg Ao max P.1 mmHg LV V1 VTI: 16.2 cm Ao mean P.8 mmHg ANDREI(I,D): 3.2 cm2 Ao V2 VTI: 17.6 cm ANDREI(V,D): 3.4 cm2 sev ratio: 0.92 ANDREI indexed to BSA (cm^2/m^2): 1.3 MV E max marta: 97.6 cm/sec TR max marta: 248.0 cm/sec MV A max marta: 0.57 cm/sec TR max P.6 mmHg MV E/A: 171.1 PA V2 max: 81.5 cm/sec Med Peak E' Marta: 12.5 cm/sec PA V2 mean: 55.4 cm/sec E/E' med: 7.8 PA mean P.4 mmHg Lat Peak E' Marta: 11.6 cm/sec PA pr(Accel): 40.5 mmHg E/E' lat: 8.4 E/e' average: 8.1 MV dec time: 0.19 sec SV(LVOT): 56.3 ml Reading Physician:12:57 PM
--- NOTE | 2024-12-10 18:18 | PC.NURSE ---
PT ARRIVED FROM ED AT 1626. 2L NC. SPO2 96%. AFIB RVR 90S- 140S WHEN MOVING. A/OX4. PT ABLE TO ANSWER ALL QUESTIONS CORRECTLY. C/O SOB AND CHEST PAIN. DR HYATT AT BEDSIDE. DILAUDID ORDERED. REQUESTED NS @ 70MLS/HR AND DILTIAZEM GTT TO BE STARTED. R FA PIV. AT BEDSIDE. ALL QUESTIONS ANSWERED AT THIS TIME.
[2024-12-10 18:24] LABS: Thyroid Stimulating Hormone 3.98 uIU/mL (0.47-4.68)
[2024-12-10] MEDS: APIXABAN 5 MG TABLET PO (20:15)
[2024-12-11] VITALS (104 sets, daily range): BP systolic 70–193; BP diastolic 37–92; PULSE 78–129; RESP 13–42; TEMP 36.6–37.2; O2SAT 90–96
[2024-12-11 04:32] LABS: Add Manual Diff / Slide Review NO; Hematocrit 39.5 % (41-53); Hemoglobin 13.2 g/dL (13.5-17.5); Lymphocytes Absolute Auto 1400 /uL (1100-4500); Mean Corpuscular HGB Conc 33.3 % (30-36); Mean Corpuscular Hemoglobin 32.2 PG (26-34); Mean Corpuscular Volume 96.5 fL (80-100); Platelet Count 165 X10^3/uL (150-400)
[2024-12-11 04:43] LABS: Blood Urea Nitrogen 22 mg/dL (9-20); Calcium 8.4 mg/dL (8.4-10.2); Carbon Dioxide 24 mmol/L (22-32); Chloride 101 mmol/L (98-107); Estimated Glomerular Filt Rate > 60 mL/min (>60); Glucose 140 mg/dL (70-99); HEMOLYSIS < 15 (0-50); Lipase 37 U/L (23-300); Potassium 4.2 mmol/L (3.4-5.1); Sodium 133 mmol/L (137-145)
[2024-12-11 04:53] LABS: NT-proBNP (BNP-Adult 18+) 1590 pg/mL (<450)
[2024-12-11 05:37] LABS: MRSA (Nasal) PCR NOT DETECTED (Not Detect)
[2024-12-11] MEDS: LEVOTHYROXINE 75 MCG TABLET PO (06:45)
--- NOTE | 2024-12-11 06:51 | PC.NURSE ---
pt rested intermittently overnight, requested to use a CPAP while sleeping, SOBOE, difficultly laying flat, AM BNP resulted to surveyor oil well directional MD, IV fluids paused, c/o pain in chest, analgesics with effect, afib 80s with dilt gtt at 10mg/hr, difficulty urinating at times, voiding small amts of dark yellow urine in urinal, care ongoing
--- NOTE | 2024-12-11 07:19 | P.PN_ITS ---
Subjective Subjective Date Patient Seen: 12/11/24 Interval history: He says he had another miserable night. He refers to his sternal area chest pain whenever he takes a deep breath or coughs. We will give him a cautious short-term trial of ketorolac. This appears to be musculoskeletal in origin. His diltiazem drip is at 10 mg an hour this morning but by mid day his blood pressure has dropped to the 80s after receiving his morning valsartan, chlorthalidone and metoprolol. Those will be held tomorrow. A chest x-ray is done again today and again does not show any obvious abnormality. A respiratory panel for all the common respiratory viruses is uniformly negative. The white count has risen from 12.2 up to 18.1 so he will be started on azithromycin and ceftriaxone for presumptive pneumonia. His says that he had some blood at his meatus so that will need to be evaluated. The BNP wiliam from 553 up to 1590. The lipase dropped from 492 down to 37. The TSH is 3.98. The sodium level is 133 with a potassium of 4.2 and a creatinine of 1.11. Exam Vital Signs (past 8 hours): - 12/11/24 00:02 12/11/24 00:15 12/11/24 00:16 Pulse Rate 85 85 Respiratory Rate 26 H 25 H Blood Pressure 189/73 H Pulse Oximetry 93 93 Oxygen Delivery Method 12/11/24 00:16 12/11/24 00:30 12/11/24 00:31 Pulse Rate 86 85 Respiratory Rate 25 H 24 Blood Pressure 167/69 H Pulse Oximetry 93 94 Oxygen Delivery Method 12/11/24 00:31 12/11/24 00:45 12/11/24 00:45 Pulse Rate 85 84 Respiratory Rate 24 24 Blood Pressure 169/74 H Pulse Oximetry 93 93 Oxygen Delivery Method 12/11/24 01:00 12/11/24 01:00 12/11/24 01:15 Pulse Rate 83 98 H Respiratory Rate 25 H 29 H Blood Pressure 163/92 H Pulse Oximetry 92 94 Oxygen Delivery Method 12/11/24 01:30 12/11/24 01:30 12/11/24 01:45 Pulse Rate 84 81 Respiratory Rate 26 H 25 H Blood Pressure 141/63 H Pulse Oximetry 93 92 Oxygen Delivery Method 12/11/24 01:45 12/11/24 02:00 12/11/24 02:00 Pulse Rate 80 Respiratory Rate 23 Blood Pressure 143/65 H 150/67 H Pulse Oximetry 92 Oxygen Delivery Method 12/11/24 02:00 12/11/24 02:15 12/11/24 02:15 Pulse Rate 79 Respiratory Rate 23 Blood Pressure 147/65 H Pulse Oximetry 93 Oxygen Delivery Method Nasal Cannula CPAP 12/11/24 02:30 12/11/24 02:30 12/11/24 02:45 Pulse Rate 82 81 Respiratory Rate 24 21 Blood Pressure 162/67 H Pulse Oximetry 93 93 Oxygen Delivery Method 12/11/24 02:45 12/11/24 03:00 12/11/24 03:01 Pulse Rate 84 83 Respiratory Rate 28 H 31 H Blood Pressure 189/86 H Pulse Oximetry 93 92 Oxygen Delivery Method 12/11/24 03:01 12/11/24 03:15 12/11/24 03:16 Pulse Rate 80 80 Respiratory Rate 13 19 Blood Pressure 162/76 H Pulse Oximetry 93 93 Oxygen Delivery Method 12/11/24 03:16 12/11/24 03:30 12/11/24 03:30 Pulse Rate 80 Respiratory Rate 16 Blood Pressure 168/80 H 193/78 H Pulse Oximetry 93 Oxygen Delivery Method 12/11/24 03:36 12/11/24 03:36 12/11/24 03:45 Pulse Rate 82 Respiratory Rate 32 H Blood Pressure 93/54 L 95/50 L Pulse Oximetry 94 Oxygen Delivery Method 12/11/24 03:45 12/11/24 03:47 12/11/24 03:47 Pulse Rate 84 78 Respiratory Rate 32 H 33 H Blood Pressure 101/51 L Pulse Oximetry 91 92 Oxygen Delivery Method 12/11/24 04:00 12/11/24 04:00 12/11/24 04:15 Pulse Rate 80 Respiratory Rate 30 H Blood Pressure 98/53 L 105/56 L Pulse Oximetry 91 Oxygen Delivery Method 12/11/24 04:15 12/11/24 04:30 12/11/24 04:30 Pulse Rate 82 79 Respiratory Rate 35 H 31 H Blood Pressure 99/50 L Pulse Oximetry 92 93 Oxygen Delivery Method 12/11/24 04:45 12/11/24 04:45 12/11/24 05:00 Pulse Rate 79 80 Respiratory Rate 29 H 32 H Blood Pressure 92/52 L Pulse Oximetry 92 92 Oxygen Delivery Method 12/11/24 05:00 12/11/24 05:15 12/11/24 05:15 Pulse Rate 79 Respiratory Rate 30 H Blood Pressure 99/55 L 96/50 L Pulse Oximetry 92 Oxygen Delivery Method 12/11/24 05:30 12/11/24 05:30 12/11/24 05:45 Pulse Rate 79 Respiratory Rate 27 H Blood Pressure 105/53 L 100/53 L Pulse Oximetry 91 Oxygen Delivery Method 12/11/24 05:45 12/11/24 06:00 12/11/24 06:00 Pulse Rate 79 80 Respiratory Rate 26 H 31 H Blood Pressure 102/51 L Pulse Oximetry 92 91 Oxygen Delivery Method 12/11/24 06:00 Pulse Rate Respiratory Rate Blood Pressure Pulse Oximetry Oxygen Delivery Method Room Air Oxygen Delivery Method Room Air Oxygen Flow Rate 2 Narrative Exam Narrative: He is alert and oriented x3. He appears to be in mild distress from costochondritis type pain. Heart is regular rate and rhythm without murmur Lungs are clear to auscultation bilaterally Extremities have no ankle edema There is no chest wall tenderness. Objective Labs 12/11/24 04:10 12/11/24 04:10 Labs: Laboratory Results - last 24 hr 12/10/24 12/10/24 12/10/24 08:32 08:32 08:32 WBC 12.2 H RBC 4.48 L Hgb 14.4 Hct 42.6 MCV 95.2 MCH 32.2 MCHC 33.8 RDW 14.9 H Plt Count 174 Neut % (Auto) 76.4 H Lymph % (Auto) 14.3 L [place] % (Auto) 8.4 Eos % (Auto) 0.4 L Baso % (Auto) 0.5 Neut # (Auto) 9400 H Lymph # (Auto) 1800 [place] # (Auto) 1000 H Eos # (Auto) 100 Baso # (Auto) 100 PT 16.6 H INR 1.5 H Sodium Cancelled 138 Potassium Cancelled 4.1 Chloride Cancelled Carbon Dioxide BUN Creatinine Estimated GFR BUN/Creatinine Ratio Glucose Lactate Calcium Total Bilirubin AST ALT Alkaline Phosphatase Total Creatine Kinase Troponin I NT-Pro-B Natriuret Pep Total Protein Albumin Globulin Albumin/Globulin Ratio Lipase TSH Nasal Screen MRSA (PCR) 12/10/24 12/10/24 12/10/24 08:32 08:32 08:32 WBC RBC Hgb Hct MCV MCH MCHC RDW Plt Count Neut % (Auto) Lymph % (Auto) [place] % (Auto) Eos % (Auto) Baso % (Auto) Neut # (Auto) Lymph # (Auto) [place] # (Auto) Eos # (Auto) Baso # (Auto) PT INR Sodium Potassium Chloride 103 Carbon Dioxide Cancelled 25 BUN Cancelled 23 H Creatinine Cancelled Estimated GFR BUN/Creatinine Ratio Glucose Lactate Calcium Total Bilirubin AST ALT Alkaline Phosphatase Total Creatine Kinase Troponin I NT-Pro-B Natriuret Pep Total Protein Albumin Globulin Albumin/Globulin Ratio Lipase TSH Nasal Screen MRSA (PCR) 12/10/24 12/10/24 12/10/24 08:32 08:32 08:32 WBC RBC Hgb Hct MCV MCH MCHC RDW Plt Count Neut % (Auto) Lymph % (Auto) [place] % (Auto) Eos % (Auto) Baso % (Auto) Neut # (Auto) Lymph # (Auto) [place] # (Auto) Eos # (Auto) Baso # (Auto) PT INR Sodium Potassium Chloride Carbon Dioxide BUN Creatinine 1.17 Estimated GFR Cancelled > 60 BUN/Creatinine Ratio Cancelled 19.7 Glucose Cancelled Lactate Calcium Total Bilirubin AST ALT Alkaline Phosphatase Total Creatine Kinase Troponin I NT-Pro-B Natriuret Pep Total Protein Albumin Globulin Albumin/Globulin Ratio Lipase TSH Nasal Screen MRSA (PCR) 12/10/24 12/10/24 12/10/24 08:32 08:32 08:32 WBC RBC Hgb Hct MCV MCH MCHC RDW Plt Count Neut % (Auto) Lymph % (Auto) [place] % (Auto) Eos % (Auto) Baso % (Auto) Neut # (Auto) Lymph # (Auto) [place] # (Auto) Eos # (Auto) Baso # (Auto) PT INR Sodium Potassium Chloride Carbon Dioxide BUN Creatinine Estimated GFR BUN/Creatinine Ratio Glucose 129 H Lactate 1.7 Calcium Cancelled 9.4 Total Bilirubin Cancelled 0.9 AST Cancelled ALT Alkaline Phosphatase Total Creatine Kinase Troponin I NT-Pro-B Natriuret Pep Total Protein Albumin Globulin Albumin/Globulin Ratio Lipase TSH Nasal Screen MRSA (PCR) 12/10/24 12/10/24 12/10/24 08:32 08:32 08:32 WBC RBC Hgb Hct MCV MCH MCHC RDW Plt Count Neut % (Auto) Lymph % (Auto) [place] % (Auto) Eos % (Auto) Baso % (Auto) Neut # (Auto) Lymph # (Auto) [place] # (Auto) Eos # (Auto) Baso # (Auto) PT INR Sodium Potassium Chloride Carbon Dioxide BUN Creatinine Estimated GFR BUN/Creatinine Ratio Glucose Lactate Calcium Total Bilirubin AST 65 H ALT Cancelled 64 H Alkaline Phosphatase Cancelled 148 H Total Creatine Kinase 51 L Troponin I Cancelled NT-Pro-B Natriuret Pep Total Protein Albumin Globulin Albumin/Globulin Ratio Lipase TSH Nasal Screen MRSA (PCR) 12/10/24 12/10/24 12/10/24 08:32 08:32 08:32 WBC RBC Hgb Hct MCV MCH MCHC RDW Plt Count Neut % (Auto) Lymph % (Auto) [place] % (Auto) Eos % (Auto) Baso % (Auto) Neut # (Auto) Lymph # (Auto) [place] # (Auto) Eos # (Auto) Baso # (Auto) PT INR Sodium Potassium Chloride Carbon Dioxide BUN Creatinine Estimated GFR BUN/Creatinine Ratio Glucose Lactate Calcium Total Bilirubin AST ALT Alkaline Phosphatase Total Creatine Kinase Troponin I < 0.012 NT-Pro-B Natriuret Pep 553 H Total Protein Cancelled 7.7 Albumin Cancelled 4.5 Globulin Cancelled Albumin/Globulin Ratio Lipase TSH Nasal Screen MRSA (PCR) 12/10/24 12/10/24 12/10/24 08:32 08:32 10:57 WBC RBC Hgb Hct MCV MCH MCHC RDW Plt Count Neut % (Auto) Lymph % (Auto) [place] % (Auto) Eos % (Auto) Baso % (Auto) Neut # (Auto) Lymph # (Auto) [place] # (Auto) Eos # (Auto) Baso # (Auto) PT INR Sodium Potassium Chloride Carbon Dioxide BUN Creatinine Estimated GFR BUN/Creatinine Ratio Glucose Lactate Calcium Total Bilirubin AST ALT Alkaline Phosphatase Total Creatine Kinase Troponin I < 0.012 NT-Pro-B Natriuret Pep Total Protein Albumin Globulin 3.2 Albumin/Globulin Ratio Cancelled 1.4 Lipase 492 H TSH 3.98 Nasal Screen MRSA (PCR) 12/10/24 12/11/24 12/11/24 14:08 04:00 04:10 WBC 18.7 H D RBC 4.09 L Hgb 13.2 L Hct 39.5 L MCV 96.5 MCH 32.2 MCHC 33.3 RDW 15.3 H Plt Count 165 Neut % (Auto) 82.9 H Lymph % (Auto) 7.7 L [place] % (Auto) 9.1 Eos % (Auto) 0.0 L Baso % (Auto) 0.3 Neut # (Auto) 08812 H Lymph # (Auto) 1400 [place] # (Auto) 1700 H Eos # (Auto) 0 Baso # (Auto) 0 PT INR Sodium 133 L Potassium 4.2 Chloride 101 Carbon Dioxide 24 BUN 22 H Creatinine 1.11 Estimated GFR > 60 BUN/Creatinine Ratio 19.8 Glucose 140 H Lactate Calcium 8.4 Total Bilirubin AST ALT Alkaline Phosphatase Total Creatine Kinase Troponin I < 0.012 NT-Pro-B Natriuret Pep 1590 H Total Protein Albumin Globulin Albumin/Globulin Ratio Lipase 37 D TSH Nasal Screen MRSA (PCR) Not detected PFSH Medical History (Updated 12/10/24 @ 15:43 by Tl Guo MD) Atrial fibrillation Gout Obesity (BMI 30-39.9) Hypertension Hyperlipidemia Primary insomnia Obstructive sleep apnea of adult Morbid obesity with BMI of 45.0-49.9, adult Depression with anxiety Social History (Updated 12/10/24 @ 15:44 by Tl Guo MD) 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 with atrial fibrillation about a month ago. He has been taking Eliquis and diltiazem but 3 days ago describe worsening insomnia and headache culminating in a miserable night last night where he could not get comfortable because of shortness of breath and pleuritic chest pain with normal volume breaths. The chest pain has been in the middle of the chest. On arrival in the ED he was in AFib with rapid ventricular response which responded to 10 mg of IV diltiazem. His chest pain was treated with aspirin, morphine and finally dilaudid was successful. Pleuritic Chest Pain, present on admission, acute. -Testing has ruled out [place], Pericarditis, Aortic Dissection and Pancreatitis -Lipase [address] negative for other signs of pancreatitis, follow. Lipase 37 on 12/11. -Troponin normal X 3, EKG AF without acute ST or T changes -Rate control with IV Diltiazem -Dilaudid IV for musculoskeletal pleuritic chest pain. Cautious addition of low-dose Toradol limited duration on 12/11. -Continue Gabapentin -Echocardiogram pending. -viral respiratory panel negative -white blood count up to 18.1 on 12/11. Chest x-ray remains nonspecific. Begin azithromycin and ceftriaxone for presumed pneumonia? Afib with RVR, present on admission, acute. -IV Diltiazem drip -Apixaban -Metoprolol. Rule out CHF, present on admission, acute -BNP 553 on admission, up to 1590 on 12/11. check Echo -Cautious IVF support, stopped on 12/11. Hypertension, present on admission, chronic. -Chlorthalidone, Metoprolol, Diltiazem, Valsartan -holding chlorthalidone, metoprolol and valsartan on 12/12 due to hypotension after receiving morning dose on 12/11. Hypothyroidism, present on admission, chronic. -Levothyroxine -TSH 3.98. BPH, present on admission, chronic. -Tamsulosin Gout, present on admission, chronic -Allopurinol Hepatic Steatosis -AST 65, ALT 64, Aphos 148 -moderate hepatic steatosis on CT Eliquis for DVT prevention His is his backup decisionmaker Time-Based Coding :: [TOTAL MINUTES] spent with patient and on the chart (including review of chart, obtaining history, exam, reviewing outside data, placing orders, documenting exam and treatment plan, and counseling patient) on [DATE].
--- NOTE | 2024-12-11 08:37 | DI.RAD.S_ITS ---
PROCEDURE: XR CHEST 1V INDICATIONS: Pneumonia TECHNIQUE: One view of the chest was acquired. COMPARISON: [facility], CR, XR CHEST 1V, 12/10/2024, 8:31. [facility], CR, XR CHEST 2V, 07/09/2023, 10:56. FINDINGS AND IMPRESSION: Moderate to severe cardiomegaly again seen. Very low lung volumes on single view radiography, limiting evaluation. There is no dense airspace disease or pleural effusions seen. Degenerative osseous changes. Dictated by: Theron Mehta M.D. on 12/11/2024 at 8:17 Approved by: Theron Mehta M.D. on 12/11/2024 at 8:18
[2024-12-11] MEDS: APIXABAN 5 MG TABLET PO ×2 (08:46→21:07)
[2024-12-11] MEDS: CHLORTHALIDONE 25 MG TABLET PO (08:46)
[2024-12-11] MEDS: VALSARTAN 80 MG TABLET 160 MG PO (08:46)
[2024-12-11] MEDS: GABAPENTIN 400 MG CAPSULE PO (08:48)
[2024-12-11] MEDS: TAMSULOSIN 0.4 MG CAPSULE PO (08:48)
[2024-12-11] MEDS: ATORVASTATIN 20 MG TABLET 10 MG PO (08:48)
[2024-12-11] MEDS: AZITHROMYCIN 500 MG in DEXTROSE 5% IN WATER 250 ML 250 MG IV (09:42)
[2024-12-11] MEDS: KETOROLAC 30 MG/ML VIAL 15 MG IV ×2 (09:43→16:28)
[2024-12-11 11:49] LABS: Coronavirus NL 63 Not Detected (Not Detect); SARS- CoV-2 Not Detected (Not Detecte)
[2024-12-11 14:13] LABS: Bilirubin Urine UA NEGATIVE (NEGATIVE); Color Urine UA YELLOW; Glucose Urine UA NEGATIVE (Negative); Ketones Urine UA NEGATIVE (NEGATIVE); Leukocyte Esterase Urine UA NEGATIVE (NEGATIVE); Nitrite Urine UA NEGATIVE (Negative); Occult Blood Urine UA 3+ (Negative); Protein Urine UA NEGATIVE (Negative); Specific Gravity Urine UA 1.025 (1.000-1.035); Urobilinogen Urine UA 0.2 E.U./dL (0.2); pH Urine UA 5.5 (4.5-8.0)
[2024-12-11 14:14] LABS: Appearance Urine UA SL CLOUDY
[2024-12-11 14:26] LABS: Culture Indicated Urine Cult Not Indicated
--- NOTE | 2024-12-11 14:55 | CM.DANOTE ---
Initial DCP Assessment Note Pt is a 84 yo male, resident of [place], admitted for heart w/u, echo, dilt drip now with new PNA. PCP: [facility], DR [place] Payor: RUTH/MALLORYP Reviewed chart, pt discussed in multidisciplinary rounds this morning. LUCIANA 12/13. Met w/patient and sp; patient lives independently with sp who is a retired RN, patient denies having any needs from this SW team currently. Patient and spouse state appreciation for the visit. No barriers identified at this time to patient's safe discharge home w/family to assist; close outpatient f/u recommended. SW team will plan to follow clinical course closely in case any DC needs or concerns arise. JENNIFER Stevenson Discharge Planning/Care Management CM Discharge Assessment Start: 12/10/24 15:21 Freq: Status: Active Protocol: Document 12/11/24 14:53 KATHE (Rec: 12/11/24 14:54 KATHE [id number]) Discharge Planning Assessment Assigned Discharge JENNIFER Parekh Thermodynamicist DPOA/Assigned Darlin Hammer spouse Designee Name Contact Information [phone] or [phone] Advance Directives? No History Provided By Patient,Significant Other Prior Living House Arrangements Household Members spouse Independent with ADL Yes 's Is patient alert and Yes oriented? Comment Patient has poor activity tolerance
[2024-12-12] VITALS (55 sets, daily range): BP systolic 116–154; BP diastolic 58–72; PULSE 82–113; RESP 19–41; TEMP 36.9–37; O2SAT 91–98
[2024-12-12] MEDS: KETOROLAC 30 MG/ML VIAL 15 MG IV (00:06)
[2024-12-12] MEDS: SODIUM CHLORIDE NASAL SPRAY 1 SPRAY NASAL (00:06)
[2024-12-12] MEDS: BENZONATATE 100 MG CAPSULE PO (00:06)
[2024-12-12 05:24] LABS: Add Manual Diff / Slide Review NO; Hematocrit 37.8 % (41-53); Hemoglobin 12.6 g/dL (13.5-17.5); Lymphocytes Absolute Auto 1700 /uL (1100-4500); Mean Corpuscular HGB Conc 33.4 % (30-36); Mean Corpuscular Hemoglobin 32.2 PG (26-34); Mean Corpuscular Volume 96.5 fL (80-100); Platelet Count 152 X10^3/uL (150-400)
[2024-12-12 05:44] LABS: Alanine Aminotransferase 36 IU/L (<50); Albumin 3.5 g/dL (3.5-5.0); Albumin Globulin Ratio 1.2 (1.0-2.8); Alkaline Phosphatase 100 U/L (38-126); Blood Urea Nitrogen 30 mg/dL (9-20); Calcium 8.4 mg/dL (8.4-10.2); Carbon Dioxide 26 mmol/L (22-32); Chloride 102 mmol/L (98-107); Estimated Glomerular Filt Rate 57 mL/min (>60); Globulin 2.9 g/dL (1.7-4.1); Glucose 123 mg/dL (70-99); HEMOLYSIS < 15 (0-50); Potassium 3.9 mmol/L (3.4-5.1); Sodium 134 mmol/L (137-145); Total Protein 6.4 g/dL (6.3-8.2)
[2024-12-12] MEDS: LEVOTHYROXINE 75 MCG TABLET PO (06:19)
--- NOTE | 2024-12-12 07:42 | P.PN_ITS ---
Subjective Subjective Date Patient Seen: 12/12/24 Interval history: He says that the chest pain has resolved after the 3 doses of Toradol. He seems much happier today. The heart rate is 102 with a respiratory rate as high as 35 but now back down to normal. The white blood count is 12.6 with a hemoglobin of 12.6 and a normal CMP. The UA yesterday showed 30-100 rbc's but no significant WBCs. Exam Vital Signs (past 8 hours): - 12/11/24 23:45 12/12/24 00:00 12/12/24 00:00 Pulse Rate 104 H 103 H Respiratory Rate 29 H 31 H Blood Pressure Pulse Oximetry 91 92 Oxygen Delivery Method Nasal Cannula 12/12/24 00:00 12/12/24 00:15 12/12/24 00:30 Pulse Rate 104 H 104 H Respiratory Rate 23 31 H Blood Pressure 129/60 Pulse Oximetry 92 92 Oxygen Delivery Method 12/12/24 00:30 12/12/24 00:45 12/12/24 01:00 Pulse Rate 101 H Respiratory Rate 28 H Blood Pressure 117/59 L 132/62 Pulse Oximetry 91 Oxygen Delivery Method 12/12/24 01:00 12/12/24 01:15 12/12/24 01:30 Pulse Rate 99 H 98 H 102 H Respiratory Rate 28 H 29 H 28 H Blood Pressure Pulse Oximetry 93 92 94 Oxygen Delivery Method 12/12/24 01:30 12/12/24 01:45 12/12/24 02:00 Pulse Rate 101 H Respiratory Rate 26 H Blood Pressure 129/58 L 122/67 Pulse Oximetry 94 Oxygen Delivery Method 12/12/24 02:00 12/12/24 02:15 12/12/24 02:30 Pulse Rate 99 H 96 H 93 H Respiratory Rate 30 H 29 H 28 H Blood Pressure Pulse Oximetry 92 92 93 Oxygen Delivery Method 12/12/24 02:45 12/12/24 03:00 12/12/24 03:15 Pulse Rate 93 H 112 H 93 H Respiratory Rate 27 H 32 H 28 H Blood Pressure Pulse Oximetry 93 94 92 Oxygen Delivery Method 12/12/24 03:30 12/12/24 03:45 12/12/24 04:00 Pulse Rate 92 H 88 Respiratory Rate 28 H 27 H Blood Pressure Pulse Oximetry 92 92 Oxygen Delivery Method Nasal Cannula 12/12/24 04:00 12/12/24 04:01 12/12/24 04:01 Pulse Rate 97 H 95 H Respiratory Rate 31 H 28 H Blood Pressure 150/70 H Pulse Oximetry 94 93 Oxygen Delivery Method 12/12/24 04:15 12/12/24 04:30 12/12/24 04:45 Pulse Rate 92 H 89 91 H Respiratory Rate 30 H 28 H 29 H Blood Pressure Pulse Oximetry 93 91 92 Oxygen Delivery Method 12/12/24 05:00 12/12/24 05:15 12/12/24 05:30 Pulse Rate 113 H 95 H 102 H Respiratory Rate 35 H 25 H 36 H Blood Pressure Pulse Oximetry 95 94 93 Oxygen Delivery Method 12/12/24 05:45 12/12/24 06:00 12/12/24 06:01 Pulse Rate 92 H 103 H Respiratory Rate 27 H 40 H Blood Pressure 130/70 Pulse Oximetry 92 93 Oxygen Delivery Method 12/12/24 06:01 Pulse Rate 102 H Respiratory Rate 35 H Blood Pressure Pulse Oximetry 95 Oxygen Delivery Method Oxygen Delivery Method Nasal Cannula Oxygen Flow Rate 2 Narrative Exam Narrative: Alert and oriented x3. Up in his chair by the bed. No apparent distress. Heart is regular rate and rhythm without murmur Lungs are clear to auscultation bilaterally Extremities have no ankle edema. Objective Labs 12/12/24 04:20 12/12/24 04:20 Labs: Laboratory Results - last 24 hr 12/11/24 12/11/24 12/12/24 09:25 14:00 04:20 WBC 12.6 H RBC 3.91 L Hgb 12.6 L Hct 37.8 L MCV 96.5 MCH 32.2 MCHC 33.4 RDW 14.6 Plt Count 152 Neut % (Auto) 75.4 H Lymph % (Auto) 13.6 L [place] % (Auto) 8.5 Eos % (Auto) 2.3 Baso % (Auto) 0.2 Neut # (Auto) 9500 H Lymph # (Auto) 1700 [place] # (Auto) 1100 H Eos # (Auto) 300 Baso # (Auto) 0 Sodium 134 L Potassium 3.9 Chloride 102 Carbon Dioxide 26 BUN 30 H Creatinine 1.25 Estimated GFR 57 L BUN/Creatinine Ratio 24.0 H Glucose 123 H Calcium 8.4 Total Bilirubin 0.9 AST 39 ALT 36 Alkaline Phosphatase 100 Total Protein 6.4 Albumin 3.5 Globulin 2.9 Albumin/Globulin Ratio 1.2 Urine Color Yellow Urine Appearance Sl cloudy Urine pH 5.5 Ur Specific [place] 1.025 Urine Protein Negative Urine Glucose (UA) Negative Urine Ketones Negative Urine Occult Blood 3+ H Urine Nitrate Negative Urine Bilirubin Negative Urine Urobilinogen 0.2 Ur Leukocyte Esterase Negative Urine RBC 30-100/hpf H Urine WBC 1-5/hpf Ur Squamous Epith Cells None seen Urine Bacteria None seen Ur Culture Indicated? Cult not indicated Vol Urine Centrifuged 10ml (spun) Chlamy pneumoniae PCR Not detected Adenovirus (PCR) Not detected B. pertussis DNA (PCR) Not detected B.parapertussis DNA PCR Not detected Coronavirus OC43 (PCR) Not detected Coronavirus HKU1 (PCR) Not detected Coronavirus 229E (PCR) Not detected SARS-CoV-2 (PCR) Not detected Coronavirus NL63 (PCR) Not detected Human Metapneumovir PCR Not detected Influenza Type A (PCR) Not detected Influenza Type B (PCR) Not detected M. 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 with atrial fibrillation about a month ago. He has been taking Eliquis and diltiazem but 3 days ago describe worsening insomnia and headache culminating in a miserable night last night where he could not get comfortable because of shortness of breath and pleuritic chest pain with normal volume breaths. The chest pain has been in the middle of the chest. On arrival in the ED he was in AFib with rapid ventricular response which responded to 10 mg of IV diltiazem. His chest pain was treated with aspirin, morphine and finally dilaudid was successful. Pleuritic Chest Pain, present on admission, acute. -Testing ruled out [place], Pericarditis, Aortic Dissection and Pancreatitis -Lipase [address] negative for other signs of pancreatitis, follow. Lipase 37 on 12/11. -Troponin normal X 3, EKG AF without acute ST or T changes -Rate control with IV Diltiazem -Dilaudid IV for musculoskeletal pleuritic chest pain. Cautious addition of low-dose Toradol limited duration on 12/11. This was effective and will be held. -Continue Gabapentin -Echocardiogram 55-60% and no significant valvular abnormality. -viral respiratory panel negative -white blood count up to 18.1 on 12/11, down to 12.1 on 12/12. Chest x-ray remains nonspecific. Started on azithromycin and ceftriaxone for presumed pneumonia? Afib with RVR, present on admission, acute. -IV Diltiazem drip -Apixaban -Metoprolol. Rule out CHF, present on admission, acute -BNP 553 on admission, up to 1590 on 12/11. Echocardiogram normal. -Cautious IVF support, stopped on 12/11. Hypertension, present on admission, chronic. -Chlorthalidone, Metoprolol, Diltiazem, Valsartan -holding chlorthalidone, metoprolol and valsartan on 12/12 due to hypotension after receiving morning dose on 12/11. Hypothyroidism, present on admission, chronic. -Levothyroxine -TSH 3.98. BPH, present on admission, chronic. -Tamsulosin Gout, present on admission, chronic -Allopurinol Hepatic Steatosis -AST 65, ALT 64, Aphos 148 -moderate hepatic steatosis on CT Eliquis for DVT prevention His is his backup decisionmaker Time-Based Coding :: [TOTAL MINUTES] spent with patient and on the chart (including review of chart, obtaining history, exam, reviewing outside data, placing orders, documenting exam and treatment plan, and counseling patient) on [DATE].
[2024-12-12] MEDS: GABAPENTIN 400 MG CAPSULE PO (08:24)
[2024-12-12] MEDS: APIXABAN 5 MG TABLET PO ×2 (08:24→20:34)
[2024-12-12] MEDS: TAMSULOSIN 0.4 MG CAPSULE PO (08:24)
[2024-12-12] MEDS: AZITHROMYCIN 500 MG in DEXTROSE 5% IN WATER 250 ML 250 MG IV (08:24)
[2024-12-12] MEDS: ATORVASTATIN 20 MG TABLET 10 MG PO (08:25)
--- NOTE | 2024-12-12 09:36 | PC.WOUNDPHOT ---
12/12 2159. Pt agreed to allow this RN to remove and change bandage on back wound. provider updated.
[2024-12-12] MEDS: SENNOSIDES 8.6 MG TABLET PO (12:15)
--- NOTE | 2024-12-12 12:40 | CM.DPC ---
DCP Cont: Per MD, pt's chest pain likely musculoskeletal in nature but his white count has increased and now treated with IV abx for likely pneumonia. MD anticipates another 1-2 days before discharge. Per RN, pt has been independent in room. JENNIFER Morrow
[2024-12-12] MEDS: DOCUSATE 100 MG CAPSULE 200 MG PO (20:34)
[2024-12-13] VITALS (10 sets, daily range): BP systolic 125–141; BP diastolic 61–81; PULSE 71–110; RESP 16–18; TEMP 36.4; O2SAT 93–100
[2024-12-13] MEDS: LEVOTHYROXINE 75 MCG TABLET PO (06:01)
--- NOTE | 2024-12-13 07:37 | P.PN_ITS ---
Subjective Subjective Date Patient Seen: 12/13/24 Exam Vital Signs (past 8 hours): - 12/13/24 00:00 12/13/24 04:00 Pulse Rate 104 H 71 Respiratory Rate 18 16 Blood Pressure 141/81 H 135/67 Pulse Oximetry 94 100 Oxygen Delivery Method Room Air Oxygen Flow Rate 2 Objective Labs 12/12/24 04:20 12/12/24 04:20 [facility] Medical History (Updated 12/10/24 @ 15:43 by Tl Guo MD) Atrial fibrillation Gout Obesity (BMI 30-39.9) Hypertension Hyperlipidemia Primary insomnia Obstructive sleep apnea of adult Morbid obesity with BMI of 45.0-49.9, adult Depression with anxiety Social History (Updated 12/10/24 @ 15:44 by Tl Guo MD) 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 with atrial fibrillation about a month ago. He has been taking Eliquis and diltiazem but 3 days ago describe worsening insomnia and headache culminating in a miserable night last night where he could not get comfortable because of shortness of breath and pleuritic chest pain with normal volume breaths. The chest pain has been in the middle of the chest. On arrival in the ED he was in AFib with rapid ventricular response which responded to 10 mg of IV diltiazem. His chest pain was treated with aspirin, morphine and finally dilaudid was successful. Pleuritic Chest Pain, present on admission, acute. -Testing ruled out RI, Pericarditis, Aortic Dissection and Pancreatitis -Lipase [address] negative for other signs of pancreatitis, follow. Lipase 37 on 12/11. -Troponin normal X 3, EKG AF without acute ST or T changes -Rate control with IV Diltiazem -Dilaudid IV for musculoskeletal pleuritic chest pain. Cautious addition of low-dose Toradol limited duration on 12/11. This was effective and will be held. -Continue Gabapentin -Echocardiogram 55-60% and no significant valvular abnormality. -viral respiratory panel negative -white blood count up to 18.1 on 12/11, down to 12.1 on 12/12. Chest x-ray remains nonspecific. Started on azithromycin and ceftriaxone for presumed pneumonia? Afib with RVR, present on admission, acute. -IV Diltiazem drip -Apixaban -Metoprolol. Rule out CHF, present on admission, acute -BNP 553 on admission, up to 1590 on 12/11. Echocardiogram normal. -Cautious IVF support, stopped on 12/11. Hypertension, present on admission, chronic. -Chlorthalidone, Metoprolol, Diltiazem, Valsartan -holding chlorthalidone, metoprolol and valsartan on 12/12 due to hypotension after receiving morning dose on 12/11. Hypothyroidism, present on admission, chronic. -Levothyroxine -TSH 3.98. BPH, present on admission, chronic. -Tamsulosin Gout, present on admission, chronic -Allopurinol Hepatic Steatosis -AST 65, ALT 64, Aphos 148 -moderate hepatic steatosis on CT Eliquis for DVT prevention His is his backup decisionmaker Time-Based Coding :: [TOTAL MINUTES] spent with patient and on the chart (including review of chart, obtaining history, exam, reviewing outside data, placing orders, documenting exam and treatment plan, and counseling patient) on [DATE].
[2024-12-13] MEDS: AZITHROMYCIN 500 MG in DEXTROSE 5% IN WATER 250 ML 250 MG IV (08:54)
[2024-12-13] MEDS: APIXABAN 5 MG TABLET PO (09:06)
[2024-12-13] MEDS: ATORVASTATIN 20 MG TABLET 10 MG PO (09:06)
[2024-12-13] MEDS: GABAPENTIN 400 MG CAPSULE PO (09:07)
[2024-12-13] MEDS: DOCUSATE 100 MG CAPSULE 200 MG PO (09:07)
[2024-12-13] MEDS: TAMSULOSIN 0.4 MG CAPSULE PO (09:07)
[2024-12-13] MEDS: VALSARTAN 80 MG TABLET 160 MG PO (09:19)
[2024-12-13] MEDS: CHLORTHALIDONE 25 MG TABLET PO (09:19)
--- NOTE | 2024-12-13 12:22 | P.DS_ITS ---
History of Present Illness History of Present Illness Chief complaint: Chest discomfort, SOB; can't laydown. Pulse >100 Narrative: This is an 84-year-old male with atrial fibrillation, gout, medical obesity, hypertension, hyperlipidemia, VIPIN, insomnia, depression and anxiety who was recently ?rediagnosed? with atrial fibrillation about a month ago. He has been taking Eliquis and diltiazem but 3 days ago describe worsening insomnia and headache culminating in a miserable night last night where he could not get comfortable because of shortness of breath and pleuritic chest pain with normal volume breaths. He has not had any palpitations, nausea or abdominal pain. The chest pain has been in the middle of the chest. On arrival in the ED he was in AFib with rapid ventricular response which responded to 10 mg of IV diltiazem. His chest pain was treated with aspirin, morphine and finally dilaudid was successful. The chest x-ray did not show any pneumonia. The EKG showed atrial fibrillation with a rate of [address] or T-wave changes. The chest CT and the abdominal/pelvic CT showed no signs of PE, aortic aneurysm, aortic dissection, pericarditis, pericardial effusion or occult neoplasm. I contacted Radiology directly and asked them to make absolutely sure that he did not have a pericardial effusion, which they were able to confirm was true. There are no pericarditis changes on the EKG. On arrival in the ICU he had a blood pressure in the 80 systolic range which then recovered before we could intervene back up above 100 suggesting that it was an equipment mismeasurement. Discharge Providers Provider Date of admission: 12/10/24 15:21 Discharge Date: 12/13/24 Primary care physician: Pipe Vegas MD Discharge provider: Tl Guo MD Summary Hospital Course Hospital Course: This is an 84-year-old male with atrial fibrillation, medical obesity, hypertension and VIPIN who was recently ?rediagnosed? with atrial fibrillation about a month ago. He has been taking Eliquis and diltiazem but 3 days ago describe worsening insomnia and headache culminating in a miserable night last night where he could not get comfortable because of shortness of breath and pleuritic chest pain with normal volume breaths. The chest pain has been in the middle of the chest. On arrival in the ED he was in AFib with rapid ventricular response which responded to 10 mg of IV diltiazem. His chest pain was treated with aspirin, morphine and finally dilaudid was successful. His costochondritis pain resolved after 3 doses of IV Toradol. His coughing and leukocytosis improved with IV azithromycin/ceftriaxone treatment despite no imaging confirmation of pneumonia. He will be completing a course of oral antibiotics for occult pneumonitis at home. Pleuritic Chest Pain, present on admission, acute. -Testing ruled out MD, Pericarditis, Aortic Dissection and Pancreatitis -Lipase [address] negative for other signs of pancreatitis, follow. Lipase 37 on 12/11. -Troponin normal X 3, EKG AF without acute ST or T changes -Rate control with IV Diltiazem -Dilaudid IV for musculoskeletal pleuritic chest pain. Cautious addition of low-dose Toradol limited duration on 12/11. This was effective and will be held after 3 doses. -Continue Gabapentin -Echocardiogram 55-60% and no significant valvular abnormality. -viral respiratory panel negative -white blood count up to 18.1 on 12/11, down to 12.1 on 12/12. Chest x-ray remains nonspecific. Started on azithromycin and ceftriaxone for presumed pneumonia? Afib with RVR, present on admission, acute. -IV Diltiazem drip -Apixaban -Metoprolol. Rule out CHF, present on admission, acute -BNP 553 on admission, up to 1590 on 12/11. Echocardiogram normal. -Cautious IVF support, stopped on 12/11. Hypertension, present on admission, chronic. -Chlorthalidone, Metoprolol, Diltiazem, Valsartan -holding chlorthalidone, metoprolol and valsartan on 12/12 due to hypotension after receiving morning dose on 12/11. Hypothyroidism, present on admission, chronic. -Levothyroxine -TSH 3.98. BPH, present on admission, chronic. -Tamsulosin Gout, present on admission, chronic -Allopurinol Hepatic Steatosis -AST 65, ALT 64, Aphos 148 -moderate hepatic steatosis on CT Status at Discharge Cognitive/behavioral status at discharge: at baseline, oriented Functional status at discharge: independent ambulation Overall status at discharge: patient is progressing back to baseline Exam Vital Signs (past 8 hours): - 12/13/24 08:00 Pulse Rate 83 Respiratory Rate 17 Blood Pressure 125/63 Pulse Oximetry 95 Oxygen Flow Rate 0 Oxygen Delivery Method Room Air Oxygen Flow Rate 0 Narrative Exam Narrative: Alert and oriented x3, no apparent distress. Heart is regular rate and rhythm no murmur, lungs are clear to auscultation bilaterally except for right base crackles, extremities have no ankle edema. 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 Discharge orders & Medications Prescriptions: New benzonatate 100 mg Capsule 100 mg PO TID PRN (Reason: Cough) Qty: 10 0RF amoxicillin-pot clavulanate [Augmentin] 500-125 mg tablet 1 tab PO TID Qty: 20 0RF Continued allopurinol 300 mg tablet 300 mg PO DAILY gabapentin 300 mg capsule 400 mg PO DAILY albuterol sulfate 90 mcg/actuation HFA aerosol inhaler 2 puff inhalation Q6H PRN (Reason: shortness of breath or wheezing) Qty: 6.7 0RF (DME) Aerochamber MV Spacer See Rx Instructions .ROUTE .MEDSUPPLY Qty: 1 0RF Rx Instructions: As directed fluticasone propionate [Flonase Allergy Relief] 50 mcg/actuation spray,suspension 1 spray intranasal Q12H Qty: 16 0RF Rx Instructions: administer into each nostril chlorthalidone 25 mg tablet 25 mg PO DAILY levothyroxine 75 mcg tablet 75 mcg PO DAILY diltiazem HCl 120 mg capsule,extended release 24hr 120 mg PO DAILY valsartan 160 mg tablet 160 mg PO DAILY Eliquis 5 mg tablet 5 mg PO BID metoprolol succinate 50 mg tablet extended release 24 hr 50 mg PO DAILY tamsulosin 0.4 mg capsule 0.4 mg PO DAILY hydrochlorothiazide 25 mg tablet 25 mg PO DAILY lovastatin 20 mg tablet 20 mg PO DAILY (DME) Respironics Dreamstation 2 CPAP See Rx Instructions Qty: 1 Dose Instruction: As directed Patient Comments: Set-up: 09.12.21 Rx Instructions: 12-18 cmH20 DME: [facility] Follow up/Referrals: Pipe Vegas MD [Primary Care Provider, Family Practice] Bryan Martinez MD [Physician, Internal Medicine] Diet/Activity/Treatments Diet: Regular Visit Report/Discharge Packet Stand Alone Forms: Patient Portal/API, Stroke Signs & Symptoms Discharge Data Primary Care Provider: Pipe Vegas
--- NOTE | 2024-12-13 12:59 | CM.DPC ---
DCP Cont. Reviewed EMR and team rounds for pt's status updates. Pt has been medically cleared for home d/c. Family will transport home. No further CM d/c needs indicated at this time.
--- NOTE | 2024-12-13 14:32 | PC.NURSE ---
Patient without complain today, eager to go home today. Tolerated breakfast, up with SB assistance and his walker to bathroom. Reports BM yesterday, voiding without difficulty today in bathroom. VSS. Mild intermittent cough noted. Patient received abx this morning as ordered, and waited for his to arrive. Patient to discharge home with his . Patient has no further questions or concerns. IV's x 2 dc'd intact.
== END 2024-12-13 13:33 | disposition home or self-care (01) | DRG 195 ==
LOC: ED 08:34 → AC 15:21 → ICU 16:23
PROVIDERS: Admitting Provider Family Medicine; Emergency Provider Family Medicine; PCP Family Medicine; Referring Provider Family Medicine; Visit Provider Family Medicine
DX: J18.9 Pneumonia, unspecified organism (principal); I50.9 Heart failure, unspecified; I48.91 Unspecified atrial fibrillation; I11.0 Hypertensive heart disease with heart failure; E03.9 Hypothyroidism, unspecified; N40.0 Benign prostatic hyperplasia without lower urinary tract symptoms; M10.9 Gout, unspecified; K76.0 Fatty (change of) liver, not elsewhere classified; R07.89 Other chest pain; E78.5 Hyperlipidemia, unspecified; G47.00 Insomnia, unspecified; G47.33 Obstructive sleep apnea (adult) (pediatric); Z79.890 Hormone replacement therapy; Z79.01 Long term (current) use of anticoagulants; Z87.891 Personal history of nicotine dependence
CPT/HCPCS: 36415; 71045; 71275; 74176; 80048; 80053; 81001; 82550; 83605; 83690; 83880; 84443; 84484; 85025; 85610; 87633; 87797; 93005; 93010; 93306; 96361; 96374; 96375; 99285; A9270; J0696; J1171; J1885; J2270; Q9967

== ENCOUNTER → 2024-12-28 10:16 | Outpatient (CLI) | payer MEDICARE, SELFPAY ==
[2024-12-10 16:41] VITALS: BMI 43.9
--- NOTE | 2024-12-28 10:19 | DI.RAD.S_ITS ---
PROCEDURE: XR CHEST 2V INDICATIONS: Rigors TECHNIQUE: 2 views of the chest were acquired. COMPARISON: [facility], CT, CT ABDOMEN PELVIS WO CON, 12/10/2024, 13:18. [facility], CR, XR CHEST 1V, 12/11/2024, 8:41. FINDINGS: Surgical changes and devices: None. Lungs and pleura: Lungs are clear. No pleural effusions or pneumothorax. Mediastinum: Mediastinal contours are normal. The heart size is mildly enlarged. However, there is abundant bilateral epicardial fat which increases the apparent transverse diameter of the heart on plain films. Bones and chest wall: No suspicious bony abnormalities. Soft tissues appear unremarkable. IMPRESSION: There is only mild cardiomegaly. No acute infiltrates. Dictated by: Nimesh Hoyos M.D. on 12/28/2024 at 11:14 Approved by: Nimesh Hoyos M.D. on 12/28/2024 at 11:15
== END ==
LOC: RAD 10:17
PROVIDERS: PCP Family Medicine; Referring Provider Family Medicine; Visit Provider Family Medicine
DX: I51.7 Cardiomegaly (principal); R68.89 Other general symptoms and signs
CPT/HCPCS: 71046